=== PATIENT | male | born 1925 | race Caucasian/White ===

== ENCOUNTER → 2016-07-29 | Outpatient (CLI) | payer MEDICARE, OTHER ==
[~2016-07-29] MED LIST: ALLO100T PO; ATOR10 PO; ATOR10TA15 PO; CARV10 PO; CARV20 PO; COLC1CAP PO; COLC1TAB7 PO; DIGO0.25 PO; DIOV40TA PO; FINA5TAB2 PO; FURO1TAB62 PO; FURO1TAB93 PO; FURO40TA PO; GLIM4TAB PO; HUMA100I3 SQ; HUMALOG SQ; INSU1.2I SQ; LANTUSP SQ; LEVEMIR SQ; NOVOLOGP2 SQ; NOVOLOGSS SQ; POTA10TA2 PO; PRAD75CA PO; PROS5TAB2 PO; SAW500CA6 PO; SPIR25TA PO; TAMS0.4C4 PO; TAMS0.4C67 PO; VALS1TAB63 PO; WALKER WHEELS/F1 MIS
[2016-07-29 13:02] LABS: AUTOMATED NEUTROPHIL # 4.2 TH/MM3 (1.8-7.7); BASOPHIL # 0.1 TH/MM3 (0-0.2); EOSINOPHIL # 0.1 TH/MM3 (0-0.4); EOSINOPHIL % 1.1 % (0.0-4.0); HEMATOCRIT 39.4 % (39.0-51.0); LYMPH % 20.8 % (9.0-44.0); LYMPHOCYTE # 1.3 TH/MM3 (1.0-4.8); MEAN CELL VOLUME 99.6 FL (80.0-100.0); MEAN CORPUSCULAR HEMOGLOBIN 33.2 PG (27.0-34.0); MEAN CORPUSCULAR HGB CONC 33.4 % (32.0-36.0); MONO % 12.7 % (0.0-8.0); NEUT % 64.4 % (16.0-70.0); PLATELET COUNT 99 TH/MM3 (150-450); RED BLOOD COUNT 3.96 MIL/MM3 (4.50-5.90); RED CELL DISTRIBUTION WIDTH 16.5 % (11.6-17.2); WHITE BLOOD COUNT 6.5 TH/MM3 (4.0-11.0)
[2016-07-29 13:05] LABS: HEMO FLAGS AUTO DIFF
[2016-07-29 13:25] LABS: ALT (GPT) 36 U/L (12-78); ANION GAP 7 MEQ/L (5-15); AST (GOT) 37 U/L (15-37); BICARBONATE 27.7 MEQ/L (21.0-32.0); BLOOD UREA NITROGEN 29 MG/DL (7-18); CHLORIDE 107 MEQ/L (98-107); GLOMERULAR FILTRATION RATE 46 ML/MIN (>89); POTASSIUM 4.6 MEQ/L (3.5-5.1); SODIUM (NA) 142 MEQ/L (136-145)
[2016-07-29 13:35] LABS: ALKALINE PHOSPHATASE 76 U/L (45-117); HDL CHOLESTEROL 29.8 MG/DL (40.0-60.0); LDL CHOLESTEROL 66 MG/DL (0-99); TOTAL BILIRUBIN ADULT 0.6 MG/DL (0.2-1.0)
[2016-07-29 14:14] LABS: BANDS 1 % (0-6); EOSINOPHILS 4 % (0-4); POLYS (SEG NEUTROPHILS) 60 % (16-70); WBC DIFF SAMPLE 100
[2016-07-29 14:16] LABS: PLATELET ESTIMATE SMEAR LOW (NORMAL); PLATELET MORPHOLOGY ENLARGED (NORMAL); SCAN/DIFF FINAL DIFF MANUAL
== END ==
LOC: PLAB 11:44
PROVIDERS: ATTEND Family Medicine
DX: K63.9 Disease of intestine, unspecified (principal); R51 Headache; R53.82 Chronic fatigue, unspecified; E11.22 Type 2 diabetes mellitus with diabetic chronic kidney disease; N18.3 Chronic kidney disease, stage 3 (moderate); I48.91 Unspecified atrial fibrillation; I50.9 Heart failure, unspecified
CPT/HCPCS: 36415; 80053; 80061; 82378; 84443; 85007; 85027

== ENCOUNTER 2016-08-30 03:58 | Inpatient (IN) | payer MEDICARE, OTHER ==
[2016-08-30] VITALS (15 sets, daily range): BP systolic 101–142; BP diastolic 57–83; PULSE 78–100; RESP 16–22; TEMP 97–98; O2SAT 91–98
[~2016-08-30 03:58] MED LIST changes: -ATOR10TA15 PO; -CARV10 PO; -COLC1CAP PO; -FINA5TAB2 PO; -FURO1TAB62 PO; -FURO40TA PO; -GLIM4TAB PO; -HUMA100I3 SQ; -HUMALOG SQ; -INSU1.2I SQ; -LEVEMIR SQ; -NOVOLOGSS SQ; -POTA10TA2 PO; -TAMS0.4C4 PO; -VALS1TAB63 PO; -WALKER WHEELS/F1 MIS
--- NOTE | 2016-08-30 04:19 | PD ---
HPI Chief Complaint: Altered Mental Status Time Seen by Provider: 04:03 Travel History International Travel<30 days: No Contact w/Intl Traveler<30days: No Traveled to known affect area: No History of Present Illness HPI The patient is an 89 year old male who presents to the [facility] emergency department with a history of being found on the floor next to the bed prior to arrival by his when she came back from going to the bathroom in the night. He was mumbling, confused with a decreased LOC, and diaphoretic. Ambulance services were called and the patient was noted to have a blood sugar of 36. IV access was obtained and the patient was given an amp of D50. The patient's blood sugar came up into the 200s. On arrival with patient's blood sugar is noted to be 76. The patient is normally alert and oriented 3. On my arrival to the room he is alert and oriented 2. The patient's arrived at his bedside and is assisting with this history. The patient does report having some right leg pain. She reports that he may have landed on his right leg. She did not witness him going onto the floor. She is unsure whether he did fall. He has not been having any nausea, vomiting, or diarrhea. She does however report that he did not eat his dinner well last night. She is unsure whether he ate lunch as he was out during that time. He does have a history of diabetes, and he is on Tujeo, Humalog, Glimiperide. He denies having any chest pain, chest pressure, or shortness of breath. He denies having any headache or neck pain. 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 Atrial Fibrillation: Yes Cancer: No Cardiovascular Problems: Yes (CHR, ATR. FIB., LBBB) Diabetes: Yes Endocrine: Yes Gout: Yes Genitourinary: Yes (BPH, RENAL CALCULI) Hepatitis: No Hiatal Hernia: No Hypertension: Yes Immune Disorder: No Musculoskeletal: No Neurologic: Yes (STROKE, NEUROPATHY HANDS/ TOES) Psychiatric: No Reproductive: No Respiratory: No Thyroid Disease: No Past Surgical History Narrative Surgical The patient's past surgical history is significant for tonsil and adenoidectomy , abdominal hernia repair. Abdominal Surgery: Yes (ABD. HERNIA REP.) AICD: No Joint Replacement: No Oral Surgery: Yes (T & A) Pacemaker: No Social History Alcohol Use: No Tobacco Use: No Substance Use: No Allergies-Medications (Allergen,Severity, Reaction): Coded Allergies: Penicillin (Unverified Allergy, Unknown, 08/30/16) Reported Meds & Prescriptions Reported Meds & Active Scripts Active Reported Toudavy Solostar Pen Inj (Insulin Glargine) 300 Unit/Ml Pen 80 Units SQ Tamsulosin (Tamsulosin HCl) 0.4 Mg Cap 0.4 Mg PO HS Mitigare (Colchicine) 0.6 Mg Cap 0.6 Mg PO DAILY Allopurinol 100 Mg Tab 100 Mg PO HS Finasteride 5 Mg Tab 5 Mg PO HS Do not crush. Glimepiride 4 Mg Tab 4 Mg PO HS Take with breakfast or first main meal Humalog Kwikpen Pen Inj (Insulin Lispro (Human) Inj) 300 Unit/3 Ml Pen 50 Units SQ AC DINNER Humalog Inj (Insulin Human Lispro) 1,000 Unit/10 Ml Vial 25 Units SQ AC LUNCH Max dose at bedtime:( )units; sugars < 70,(0)units; sugars 150-199,(5)units; sugars 200-249,(10)units; sugars 250-299,(15)units; sugars 300-349,(20)units; sugars more than 349,(25)units. Humalog Kwikpen Pen Inj (Insulin Lispro (Human) Inj) 300 Unit/3 Ml Pen 35 Units SQ AC BREAKFAST Glimepiride 4 Mg Tab 4 Mg PO DAILY Take with breakfast or first main meal Pradaxa (Dabigatran) 75 Mg Cap 75 Mg PO DAILY Spironolactone 25 Mg Tab 12.5 Mg PO DAILY Furosemide 40 Mg Tab 40 Mg PO DAILY Coreg Cr 24 HR (Carvedilol) 10 Mg Cap 10 Mg PO DAILY Valsartan 40 Mg Tab 20 Mg PO DAILY Atorvastatin (Atorvastatin Calcium) 10 Mg Tab 10 Mg PO DAILY Review of Systems Except as stated in HPI: all other systems reviewed are Neg General / Constitutional: No: Fever Eyes: No: Visual changes HENT: No: Headaches, Congestion Cardiovascular: Positive: Diaphoresis, No: Chest Pain or Discomfort, Dyspnea on exertion Respiratory: No: Cough, Shortness of Breath Gastrointestinal: Positive: Loss of Appetite, No: Nausea, Vomiting, Abdominal Pain Genitourinary: No: Dysuria Musculoskeletal: No: Pain Skin: No Rash Neurologic: Positive: Weakness (generalized weakness), Change in Mentation, No : Focal Abnormalities, Other Psychiatric: No: Depression Endocrine: No: Polydipsia Hematologic/Lymphatic: No: Easy Bruising Physical Exam Narrative General: The patient is a well-developed well-nourished male, slightly pale appearing on arrival, otherwise in no acute distress, O2 saturation on room air is 90%. Head and Neck exam: Head is normocephalic atraumatic. Eyes: Pupils are equal round and reactive to light. Nose: Midline septum with pink mucous membranes Mouth: Dentition unremarkable. Moist mucus membranes. Posterior oropharynx is not erythematous. No tonsillar hypertrophy. Uvula midline. Airway patent. Neck: No palpable lymphadenopathy. No nuchal rigidity. No thyromegaly. The patient has no spinous process tenderness to palpation, no step-off or crepitus , no erythema or ecchymosis. Cardiovascular: Regular rate and rhythm without murmurs, gallops, or rubs. No pulse deficit to the extremities, on simultaneous auscultation and palpation of his radial artery. Lungs: Clear to auscultation bilaterally. No wheezes, rhonchi, or rales. Abdomen: Soft, without tenderness to palpation in all 4 quadrants of the abdomen. No guarding, rebound, or rigidity. Normal bowel sounds are audible. Extremities: No clubbing, cyanosis, or edema. 2+ pulses in all 4 extremities. The patient reports pain in the right groin with flexion of his hip. There is no shortening or external rotation. There is no internal rotation. Back: No spinous process tenderness to palpation. No costovertebral angle tenderness to palpation. Neurologic Exam: Cranial nerves 2-12 were intact on exam. Strength is 5/5 in all 4 extremities. No sensory deficits noted. The patient is oriented to person and place, however not time, or situation. Skin Exam: No rash noted. Intact skin that is warm and dry. Data Data Last Documented VS Vital Signs Date Time Temp Pulse Resp B/P Pulse Ox O2 Delivery O2 Flow Rate FiO2 08/30/16 06:00 83 18 101/57 94 Nasal Cannula 3 08/30/16 04:01 97.4 Orders Electrocardiogram (08/30/16 04:10) Complete Blood Count With Diff (08/30/16 04:10) Comprehensive Metabolic Panel (08/30/16 04:10) Creatine Kinase (Cpk) (08/30/16 04:10) Ckmb (Isoenzyme) Profile (08/30/16 04:10) Troponin I (08/30/16 04:10) B-Type Natriuretic Peptide (08/30/16 04:10) Prothrombin Time / Inr (Pt) (08/30/16 04:10) Act Partial Throm Time (Ptt) (08/30/16 04:10) Lipase (08/30/16 04:10) Urinalysis - C+S If Indicated (08/30/16 04:10) Magnesium (Mg) (08/30/16 04:10) Chest, Single Ap (08/30/16 04:10) Ct Brain W/O Iv Contrast(Rout) (08/30/16 04:10) Iv Access Insert/Monitor (08/30/16 04:10) Ecg Monitoring (08/30/16 04:10) Oximetry (08/30/16 04:10) Hip, Uni(Ap&Lat) W Ap Pelvis (08/30/16 04:10) Dextrose 50% In Clifford (Syr) Inj (D50w (Syr (08/30/16 04:23) Dextrose 50% In Clifford (Vial) Inj (D50w (Vi (08/30/16 04:45) Dext 5%-Nacl 0.45% 1000 Ml Inj (D5w-1/2 (08/30/16 04:45) CKMB (08/30/16 04:05) CKMB% (08/30/16 04:05) Aspirin Chew (Aspirin Chew) (08/30/16 06:00) Nitroglycerin 2% Oint (Nitroglycerin 2% (08/30/16 06:00) Admit Order (Ed Use Only) (08/30/16 06:51) Labs Laboratory Tests Test 08/30/16 08/30/16 04:05 06:15 White Blood Count 12.2 TH/MM3 Red Blood Count 4.15 MIL/MM3 Hemoglobin 14.1 GM/DL Hematocrit 41.4 % Mean Corpuscular Volume 99.9 FL Mean Corpuscular Hemoglobin 34.1 PG Mean Corpuscular Hemoglobin 34.1 % Concent Red Cell Distribution Width 16.0 % Platelet Count 115 TH/MM3 Mean Platelet Volume 11.2 FL Neutrophils (%) (Auto) 78.7 % Lymphocytes (%) (Auto) 10.3 % Monocytes (%) (Auto) 9.7 % Eosinophils (%) (Auto) 0.4 % Basophils (%) (Auto) 0.9 % Neutrophils # (Auto) 9.6 TH/MM3 Lymphocytes # (Auto) 1.3 TH/MM3 Monocytes # (Auto) 1.2 TH/MM3 Eosinophils # (Auto) 0.1 TH/MM3 Basophils # (Auto) 0.1 TH/MM3 CBC Comment AUTO DIFF Differential Total Cells 100 Counted Neutrophils % (Manual) 68 % Band Neutrophils % 15 % Lymphocytes % 13 % Monocytes % 4 % Neutrophils # (Manual) 10.1 TH/MM3 Differential Comment FINAL DIFF MANUAL Dohle Bodies PRESENT Platelet Estimate LOW Platelet Morphology Comment NORMAL Prothrombin Time 15.0 SEC Prothromb Time International 1.3 RATIO Ratio Activated Partial 37.4 SEC Thromboplast Time Sodium Level 145 MEQ/L Potassium Level 3.8 MEQ/L Chloride Level 112 MEQ/L Carbon Dioxide Level 24.6 MEQ/L Anion Gap 8 MEQ/L Blood Urea Nitrogen 34 MG/DL Creatinine 1.58 MG/DL Estimat Glomerular Filtration 42 ML/MIN Rate Random Glucose 73 MG/DL Calcium Level 8.4 MG/DL Magnesium Level 2.3 MG/DL Total Bilirubin 0.7 MG/DL Aspartate Amino Transf 46 U/L (AST/SGOT) Alanine Aminotransferase 42 U/L (ALT/SGPT) Alkaline Phosphatase 74 U/L Total Creatine Kinase 391 U/L Creatine Kinase MB 6.6 NG/ML Creatine Kinase MB % 1.7 % Troponin I 0.16 NG/ML B-Type Natriuretic Peptide 227 PG/ML Total Protein 6.9 GM/DL Albumin 3.5 GM/DL Lipase 68 U/L Urine Color YELLOW Urine Turbidity CLEAR Urine pH 5.5 Urine Specific [place] 1.014 Urine Protein NEG mg/dL Urine Glucose (UA) NEG mg/dL Urine Ketones NEG mg/dL Urine Occult Blood NEG Urine Nitrite NEG Urine Bilirubin NEG Urine Urobilinogen LESS THAN 2.0 MG/DL Urine Leukocyte Esterase MOD Urine RBC LESS THAN 1 /hpf Urine WBC 5 /hpf Urine WBC Clumps RARE Urine Bacteria MANY /hpf Urine Hyaline Casts 2 /lpf Microscopic Urinalysis Comment CULTURE INDICATED MDM Medical Decision Making Medical Screen Exam Complete: Yes Emergency Medical Condition: Yes Medical Record Reviewed: Yes Interpretation(s) Laboratory Tests Test 08/30/16 08/30/16 04:05 06:15 White Blood Count 12.2 TH/MM3 Red Blood Count 4.15 MIL/MM3 Hemoglobin 14.1 GM/DL Hematocrit 41.4 % Mean Corpuscular Volume 99.9 FL Mean Corpuscular Hemoglobin 34.1 PG Mean Corpuscular Hemoglobin 34.1 % Concent Red Cell Distribution Width 16.0 % Platelet Count 115 TH/MM3 Mean Platelet Volume 11.2 FL Neutrophils (%) (Auto) 78.7 % Lymphocytes (%) (Auto) 10.3 % Monocytes (%) (Auto) 9.7 % Eosinophils (%) (Auto) 0.4 % Basophils (%) (Auto) 0.9 % Neutrophils # (Auto) 9.6 TH/MM3 Lymphocytes # (Auto) 1.3 TH/MM3 Monocytes # (Auto) 1.2 TH/MM3 Eosinophils # (Auto) 0.1 TH/MM3 Basophils # (Auto) 0.1 TH/MM3 CBC Comment AUTO DIFF Differential Total Cells 100 Counted Neutrophils % (Manual) 68 % Band Neutrophils % 15 % Lymphocytes % 13 % Monocytes % 4 % Neutrophils # (Manual) 10.1 TH/MM3 Differential Comment FINAL DIFF MANUAL Dohle Bodies PRESENT Platelet Estimate LOW Platelet Morphology Comment NORMAL Prothrombin Time 15.0 SEC Prothromb Time International 1.3 RATIO Ratio Activated Partial 37.4 SEC Thromboplast Time Sodium Level 145 MEQ/L Potassium Level 3.8 MEQ/L Chloride Level 112 MEQ/L Carbon Dioxide Level 24.6 MEQ/L Anion Gap 8 MEQ/L Blood Urea Nitrogen 34 MG/DL Creatinine 1.58 MG/DL Estimat Glomerular Filtration 42 ML/MIN Rate Random Glucose 73 MG/DL Calcium Level 8.4 MG/DL Magnesium Level 2.3 MG/DL Total Bilirubin 0.7 MG/DL Aspartate Amino Transf 46 U/L (AST/SGOT) Alanine Aminotransferase 42 U/L (ALT/SGPT) Alkaline Phosphatase 74 U/L Total Creatine Kinase 391 U/L Creatine Kinase MB 6.6 NG/ML Creatine Kinase MB % 1.7 % Troponin I 0.16 NG/ML B-Type Natriuretic Peptide 227 PG/ML Total Protein 6.9 GM/DL Albumin 3.5 GM/DL Lipase 68 U/L Urine Color YELLOW Urine Turbidity CLEAR Urine pH 5.5 Urine Specific [place] 1.014 Urine Protein NEG mg/dL Urine Glucose (UA) NEG mg/dL Urine Ketones NEG mg/dL Urine Occult Blood NEG Urine Nitrite NEG Urine Bilirubin NEG Urine Urobilinogen LESS THAN 2.0 MG/DL Urine Leukocyte Esterase MOD Urine RBC LESS THAN 1 /hpf Urine WBC 5 /hpf Urine WBC Clumps RARE Urine Bacteria MANY /hpf Urine Hyaline Casts 2 /lpf Microscopic Urinalysis Comment CULTURE INDICATED Last Impressions Hip and Pelvis X-Ray 08/30/16409 Signed Impressions: Service Date/Time: Tuesday, August 30, 2016 04:33 - CONCLUSION: No acute disease. Anirudh Stevenson MD Head CT 08/30/16409 Signed Impressions: Service Date/Time: Tuesday, August 30, 2016 04:40 - CONCLUSION: No acute disease. There is age-related atrophy and right frontal lobe encephalomalacia. Anirudh Stevenson MD Chest X-Ray 08/30/16409 Signed Impressions: Service Date/Time: Tuesday, August 30, 2016 04:37 - CONCLUSION: No acute disease. Anirudh Stevenson MD Differential Diagnosis Encephalopathy related to hypoglycemic event, versus intracranial hemorrhage, versus right hip fracture, versus pelvic fracture Narrative Course During the course of the patients emergency department visit, the patients history, examination, and differential diagnosis were reviewed with the patient. The patient had IV access obtained and blood work sent for analysis. The patient's blood sugar was rechecked on arrival was 76. The patient was given orange juice. The patient's blood sugar was rechecked again and found to be 74. The patient will be given a half amp of D50. The patient will be started on D5 normal saline at 70 mL per hour. The patients laboratory studies were reviewed and remarkable for white count 12.2, hemoglobin 14.1, platelets 1:15 with neutrophils of 68, bands at 15, CMP is remarkable for chloride 112, BUN 34, creatinine 1.58, glucose 73, AST 46, CPK 391 with an MB percent 1.7, troponin I 0.16, BNP 227, lipase 68, PT 15, PTT 37.4, INR 1.3, urinalysis shows moderate leukocyte esterase 5 wbc's rare clumps many bacteria, culture indicated. This appears to be the source of the patient' s elevated white count and bandemia. The patient will be started on IV antibiotic Radiology studies were reviewed and remarkable for a chest x-ray that shows no acute abnormality. CT scan of the brain shows no acute disease, age-related atrophy and right frontal lobe encephalomalacia, chest x-ray shows no acute abnormality. The patients results were discussed with the patient, including the plan of care. I explained that further testing and/ or monitoring is indicated based on the patients history, examination, and/ or laboratory findings. Therefore, I recommended admission for additional evaluation. The patient expressed understanding and was agreeable with this plan. The patient was admitted to the hospital in guarded condition and sent to a bed under the [facility]. Physician Communication Physician Communication The patient's case was discussed with Dr. Francois who did agree to admit the patient for further evaluation and treatment at this time Diagnosis Primary Impression: Hypoglycemia Additional Impressions: Altered mental status Qualified Code: R41.0 - Disorientation Urinary tract infection Qualified Code: N39.0 - Urinary tract infection without hematuria, site unspecified Admitting Information Admitting Physician Requests: Admit Lauryn Collins MD Aug 30, 2016 04:19
[2016-08-30] MEDS ORDERED: DEXTROSE 50% IN WATER 50 ML SYRINGE ONE (04:23)
[2016-08-30 04:44] LABS: AUTOMATED NEUTROPHIL # 9.6 TH/MM3 (1.8-7.7); BASOPHIL # 0.1 TH/MM3 (0-0.2); BASOPHIL % 0.9 % (0.0-2.0); EOSINOPHIL # 0.1 TH/MM3 (0-0.4); EOSINOPHIL % 0.4 % (0.0-4.0); HEMATOCRIT 41.4 % (39.0-51.0); LYMPH % 10.3 % (9.0-44.0); LYMPHOCYTE # 1.3 TH/MM3 (1.0-4.8); MEAN CELL VOLUME 99.9 FL (80.0-100.0); MEAN CORPUSCULAR HEMOGLOBIN 34.1 PG (27.0-34.0); MEAN CORPUSCULAR HGB CONC 34.1 % (32.0-36.0); MONO % 9.7 % (0.0-8.0); NEUT % 78.7 % (16.0-70.0); PLATELET COUNT 115 TH/MM3 (150-450); RED BLOOD COUNT 4.15 MIL/MM3 (4.50-5.90); WHITE BLOOD COUNT 12.2 TH/MM3 (4.0-11.0)
[2016-08-30] MEDS ORDERED: DEXTROSE 50% IN WATER 50 ML VIAL(D50) IV PUSH ONE (04:45)
[2016-08-30 04:48] LABS: HEMO FLAGS AUTO DIFF
[2016-08-30] MEDS ORDERED: SPIR25TA PO (04:48)
[2016-08-30] MEDS ORDERED: FURO40TA PO (04:48)
[2016-08-30] MEDS ORDERED: COLC1CAP PO (04:48)
[2016-08-30] MEDS ORDERED: HUMA100I3 SQ ×2 (04:48)
[2016-08-30] MEDS ORDERED: HUMALOG SQ (04:48)
[2016-08-30] MEDS ORDERED: VALS1TAB63 PO (04:48)
[2016-08-30] MEDS ORDERED: FINA5TAB2 PO (04:48)
[2016-08-30] MEDS ORDERED: PRAD75CA PO (04:48)
[2016-08-30] MEDS ORDERED: CARV10 PO (04:48)
[2016-08-30] MEDS ORDERED: INSU1.2I SQ (04:48)
[2016-08-30] MEDS ORDERED: ALLO100T PO (04:48)
[2016-08-30] MEDS ORDERED: GLIM4TAB PO ×2 (04:48)
[2016-08-30] MEDS ORDERED: ATOR10TA15 PO (04:48)
[2016-08-30] MEDS ORDERED: TAMS0.4C4 PO (04:48)
[2016-08-30 04:50] LABS: APTT (PATIENT) 37.4 SEC (24.3-30.1); INTERNATIONAL NORMALIZED RATIO 1.3 RATIO
[2016-08-30 04:53] LABS: ALT (GPT) 42 U/L (12-78); ANION GAP 8 MEQ/L (5-15); AST (GOT) 46 U/L (15-37); BICARBONATE 24.6 MEQ/L (21.0-32.0); BLOOD UREA NITROGEN 34 MG/DL (7-18); CHLORIDE 112 MEQ/L (98-107); GLOMERULAR FILTRATION RATE 42 ML/MIN (>89); MAGNESIUM 2.3 MG/DL (1.5-2.5); POTASSIUM 3.8 MEQ/L (3.5-5.1); SODIUM (NA) 145 MEQ/L (136-145)
[2016-08-30 04:57] LABS: ALKALINE PHOSPHATASE 74 U/L (45-117); CREATINE KINASE 391 U/L (39-308); TOTAL BILIRUBIN ADULT 0.7 MG/DL (0.2-1.0)
[2016-08-30] MEDS: DEXT 5%-NACL 0.45% 1000 ML INJ 1,000 ML IV SCH (05:05)
--- NOTE | 2016-08-30 05:08 | RADRPT ---
EXAM DATE/TIME: 08/30/2016 04:37 [facility] COMPARISON: CHEST SINGLE AP, June 15, 2014, 10:15. INDICATIONS : Trauma, fall. MEDICAL HISTORY : None. SURGICAL HISTORY : None. ENCOUNTER: Initial ACUITY: 1 day PAIN SCORE: 0/10 LOCATION: Bilateral chest FINDINGS: The heart size is enlarged. The aorta is widened. The aorta was one on the prior exam. The lungs are clear. The bony structures are normal. CONCLUSION: No acute disease. Anirudh Stevenson MD on August 30, 2016 at 5:05 Board Certified Radiologist. This report was verified electronically.
--- NOTE | 2016-08-30 05:09 | RADRPT ---
EXAM DATE/TIME: 08/30/2016 04:33 [facility] COMPARISON: No previous studies available for comparison. INDICATIONS : Trauma, fall. MEDICAL HISTORY : None. SURGICAL HISTORY : None. ENCOUNTER: Initial ACUITY: 1 day PAIN SCORE: 5/10 LOCATION: Right hip. FINDINGS: Examination of the right hip was performed with AP Pelvis. The primary and secondary trabecular regina pao of the femoral neck is intact. The hip joint is of normal width without significant sclerosis or bony hypertrophy. The acetabulum is grossly intact. Hernia mesh is seen in the right inguinal regio n. Vascular calcifications are seen. CONCLUSION: No acute disease. Anirudh Stevenson MD on August 30, 2016 at 5:07 Board Certified Radiologist. This report was verified electronically.
[2016-08-30 05:10] LABS: CKMB 6.6 NG/ML (0.5-3.6)
--- NOTE | 2016-08-30 05:10 | RADRPT ---
EXAM DATE/TIME: 08/30/2016 04:40 [facility] COMPARISON: HIP RIGHT (AP&LAT 2/3VWS) W AP PELVIS, August 30, 2016, 4:33. CT BRAIN W/O CONTRAST, June 15, 2014, 10:30. INDICATIONS : Fall. Altered mental status. RADIATION DOSE: 48.37 CTDIvol (mGy) MEDICAL HISTORY : Cardiovascular disease. Hypertension. Diabetes mellitus type 2. SURGICAL HISTORY : None. ENCOUNTER: Initial ACUITY: 1 day PAIN SCALE: 0/10 LOCATION: cranial TECHNIQUE: Multiple contiguous axial images were obtained of the head. Using automated exposure control and adj ustment of the mA and/or kV according to patient size, radiation dose was kept as low as reasonably a chievable to obtain optimal diagnostic quality images. FINDINGS: CEREBRUM: There is encephalomalacia in the right frontal lobe. The ventricles and cortical sulci are widened. No evidence of midline shift, mass lesion, hemorrhage or acute infarction. No extra-axial fluid zhen ections are seen. POSTERIOR FOSSA: The cerebellum and brainstem are intact. The 4th ventricle is midline. The cerebellopontine angle i s unremarkable. EXTRACRANIAL: The visualized portion of the orbits is intact. There is left maxillary sinus disease. SKULL: The calvaria is intact. No evidence of skull fracture. CONCLUSION: No acute disease. There is age-related atrophy and right frontal lobe encephalomalacia. Anirudh Stevenson MD on August 30, 2016 at 5:07 Board Certified Radiologist. This report was verified electronically.
[2016-08-30 05:28] LABS: BANDS 15 % (0-6); NEUTROPHIL # MANUAL DIFF 10.1 TH/MM3 (1.8-7.7); POLYS (SEG NEUTROPHILS) 68 % (16-70); WBC DIFF SAMPLE 100
[2016-08-30 05:29] LABS: DOHLE BODIES PRESENT (NONE SEEN); PLATELET ESTIMATE SMEAR LOW (NORMAL); PLATELET MORPHOLOGY NORMAL (NORMAL); SCAN/DIFF FINAL DIFF MANUAL
[2016-08-30] MEDS ORDERED: NITROGLYCERIN 2% OINT 1 GM PACKET TOPICAL ONE (06:00)
[2016-08-30] MEDS ORDERED: ASPIRIN 81 MG CHEW TAB CHEW ONE (06:00)
[2016-08-30 06:54] LABS: BACTERIA, URINE MANY /hpf; BLOOD, URINE NEG (NEG); GLUCOSE,URINE NEG (NEG); HYALINE CAST, URINE 2 /lpf (RARE); KETONE, URINE NEG (NEG); NITRITE,URINE NEG (NEG); PH, URINE 5.5 (5.0-8.5); URINE COLOR YELLOW (YELLW/STRAW)
[2016-08-30 06:58] LABS: COMMENT (UR) CULTURE INDICATED; CULTURE IF INDICATED CULTURE INDICATED
[2016-08-30] MEDS ORDERED: SODIUM CHLORIDE 0.9% FLUSH 5 ML FLUSH FLUSH PRN (07:00)
[2016-08-30] MEDS ORDERED: ONDANSETRON HCL 4 MG/2 ML VIAL IVP PRN (07:00)
[2016-08-30] MEDS ORDERED: NALOXONE HCL 0.4 MG/ML AMP IV PRN (07:00)
[2016-08-30] MEDS ORDERED: CEFEPIME INJ 2,000 MG in SODIUM CHLORIDE 0.9% INJ 100 ML IV STA (07:44)
[2016-08-30] MEDS ORDERED: PILL SPLITTER OTHER PRN (08:00)
[2016-08-30] MEDS ORDERED: VALSARTAN 40 MG TAB PO SCH (09:00)
[2016-08-30] MEDS ORDERED: SPIRONOLACTONE 25 MG TAB PO SCH (09:00)
[2016-08-30] MEDS ORDERED: FUROSEMIDE 40 MG TAB PO SCH (09:00)
[2016-08-30] MEDS: SODIUM CHLORIDE 0.9% FLUSH 5 ML FLUSH FLUSH SCH ×2 (09:01→20:24)
[2016-08-30] MEDS: CARVEDILOL 3.125 MG TAB PO SCH ×2 (09:02→20:33)
[2016-08-30] MEDS: DABIGATRAN ETEXILATE 75 MG CAP PO SCH (09:04)
[2016-08-30] MEDS: ATORVASTATIN 10 MG TAB PO SCH (09:04)
[2016-08-30 09:14] LABS: CKMB 16.7 NG/ML (0.5-3.6)
--- NOTE | 2016-08-30 10:37 | RADRPT ---
EXAM DATE/TIME: 08/30/2016 09:36 [facility] COMPARISON: No previous studies available for comparison. INDICATIONS : Syncope. MEDICAL HISTORY : Stroke. Congestive heart failure. Hypertension. Cataracts. Neuropathy. A.FIB. Left bundle branch bloc kage. Gout. Diabetes. BPH. SURGICAL HISTORY : Tonsillectomy. Adenoidectomy. Hernia repair. ENCOUNTER: Initial ACUITY: 1 day PAIN SCORE: 0/10 LOCATION: Right neck PEAK SYSTOLIC VELOCITIES (cm/sec): ICA/CCA RATIO: Right: 0.4 Left: 0.8 ICA: Right: 53 Left: 73 CCA: Right: 125 Left: 97 ECA: Right: 61 Left: 124 VERTEBRAL: Right: 25 antegrade Left: 71 antegrade Elevated flow velocities and ICA/CCA ratios have been found to correlate with increased degrees of vessel stenosis, calculated as percentage of diameter relative to a normal segment of distal ICA/CCA FINDINGS: RIGHT CAROTID: No significant stenosis is visualized. Mild plaque. The waveforms are within normal limits. LEFT CAROTID: No significant stenosis is visualized. Mild plaque. The waveforms are within normal limits. VERTEBRAL ARTERIES: Antegrade flow is seen in both vertebral arteries. MISCELLANEOUS: None. CONCLUSION: 1. Mild plaque. 2. No hemodynamically significant stenosis in either carotid artery. Raheel Juares MD on August 30, 2016 at 10:32 Board Certified Radiologist. This report was verified electronically.
--- NOTE | 2016-08-30 12:11 | HHI.HP ---
HPI Service [facility] Primary Care Physician Eva Gay MD Admission Diagnosis Hypoglycemia, AMS, intermediate troponin Diagnoses: Chief Complaint: Syncope Travel History International Travel<30 Days: No Contact w/Intl Traveler <30 Da: No Traveled to Known Affected Are: No History of Present Illness 89 years old male with history of CHF, A. 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 In general patient is very poor historian he does not remember anything related to the episodes denied remembering chest pain short of breath lightheaded or dizziness, blurry vision, sweatiness or diaphoresis. Currently patient denies any chest pain short of breath, abdominal pain diarrhea or constipation, dysuria urgency or frequency, headache or lightheaded or dizziness Review of Systems ROS Limitations: Poor Historian All 10 systems reviewed and was positive for what is mentioned in history of present illness otherwise negative in sitting palpation is poor historian Past Family Social History Past Medical History history of CHF, A. 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, diabetes mellitus, LBBB, BPH, hypertension, diabetic nephropathy, Past Surgical History Hernia repair Allergies: Coded Allergies: Penicillin (Unverified Allergy, Unknown, 08/30/16) Family History Diabetes mellitus in his mother Social History Denied tobacco alcohol or illicit drug abuse Physical Exam Vital Signs Vital Signs Date Time Temp Pulse Resp B/P Pulse Ox O2 Delivery O2 Flow Rate FiO2 08/30/16 11:00 100 08/30/16 11:00 97.6 100 22 131/83 98 08/30/16 09:58 92 18 142/74 96 Nasal Cannula 08/30/16 09:00 93 18 125/65 95 Nasal Cannula 3 08/30/16 07:50 86 18 110/59 96 Nasal Cannula 3 08/30/16 06:00 83 18 101/57 94 Nasal Cannula 3 08/30/16 04:05 92 Nasal Cannula 2 08/30/16 04:01 97.4 88 16 130/68 91 Physical Exam GENERAL: This is a well-nourished, well-developed patient, in no apparent distress. SKIN: No rashes, warm and dry HEAD: Atraumatic. Normocephalic. EYES: Pupils equal round and reactive. Extraocular motions intact. No scleral icterus. ENT: Nose without bleeding, or drainage, Airway patent. NECK: Trachea midline. Supple CARDIOVASCULAR: Regular rate and rhythm without murmurs, gallops, or rubs. RESPIRATORY: Fair air entry bilaterally. No wheezes, rales, or rhonchi. GASTROINTESTINAL: Abdomen soft, non-tender, nondistended. Positive bowel sounds MUSCULOSKELETAL: Extremities without clubbing, cyanosis, or edema. Pedal pulses appreciated NEUROLOGICAL: Awake and alert. Moves all extremity. Normal speech.no focal neurological deficit Laboratory Laboratory Tests Test 08/30/16 08/30/16 08/30/16 04:05 06:15 08:00 White Blood Count 12.2 Red Blood Count 4.15 Hemoglobin 14.1 Hematocrit 41.4 Mean Corpuscular Volume 99.9 Mean Corpuscular Hemoglobin 34.1 Mean Corpuscular Hemoglobin 34.1 Concent Red Cell Distribution Width 16.0 Platelet Count 115 Mean Platelet Volume 11.2 Neutrophils (%) (Auto) 78.7 Lymphocytes (%) (Auto) 10.3 Monocytes (%) (Auto) 9.7 Eosinophils (%) (Auto) 0.4 Basophils (%) (Auto) 0.9 Neutrophils # (Auto) 9.6 Lymphocytes # (Auto) 1.3 Monocytes # (Auto) 1.2 Eosinophils # (Auto) 0.1 Basophils # (Auto) 0.1 CBC Comment AUTO DIFF Differential Total Cells 100 Counted Neutrophils % (Manual) 68 Band Neutrophils % 15 Lymphocytes % 13 Monocytes % 4 Neutrophils # (Manual) 10.1 Differential Comment FINAL DIFF MANUAL Dohle Bodies PRESENT Platelet Estimate LOW Platelet Morphology Comment NORMAL Prothrombin Time 15.0 Prothromb Time International 1.3 Ratio Activated Partial 37.4 Thromboplast Time Sodium Level 145 Potassium Level 3.8 Chloride Level 112 Carbon Dioxide Level 24.6 Anion Gap 8 Blood Urea Nitrogen 34 Creatinine 1.58 Estimat Glomerular Filtration 42 Rate Random Glucose 73 Calcium Level 8.4 Magnesium Level 2.3 Total Bilirubin 0.7 Aspartate Amino Transf 46 (AST/SGOT) Alanine Aminotransferase 42 (ALT/SGPT) Alkaline Phosphatase 74 Total Creatine Kinase 391 1733 Creatine Kinase MB 6.6 16.7 Creatine Kinase MB % 1.7 1.0 Troponin I 0.16 0.54 B-Type Natriuretic Peptide 227 Total Protein 6.9 Albumin 3.5 Lipase 68 Urine Color YELLOW Urine Turbidity CLEAR Urine pH 5.5 Urine Specific [place] 1.014 Urine Protein NEG Urine Glucose (UA) NEG Urine Ketones NEG Urine Occult Blood NEG Urine Nitrite NEG Urine Bilirubin NEG Urine Urobilinogen LESS THAN 2.0 Urine Leukocyte Esterase MOD Urine RBC LESS THAN 1 Urine WBC 5 Urine WBC Clumps RARE Urine Bacteria MANY Urine Hyaline Casts 2 Microscopic Urinalysis Comment CULTURE INDICATED Date/Time Procedure Status Source Growth 08/30/16 06:15 Urine Culture Received Urine Clean Catch Pending Result Diagram: 08/30/1640408/30/16404 Imaging Last Impressions Hip and Pelvis X-Ray 08/30/16409 Signed Impressions: Service Date/Time: Tuesday, August 30, 2016 04:33 - CONCLUSION: No acute disease. Anirudh Stevenson MD Head CT 08/30/16409 Signed Impressions: Service Date/Time: Tuesday, August 30, 2016 04:40 - CONCLUSION: No acute disease. There is age-related atrophy and right frontal lobe encephalomalacia. Anirudh Stevenson MD Chest X-Ray 08/30/16409 Signed Impressions: Service Date/Time: Tuesday, August 30, 2016 04:37 - CONCLUSION: No acute disease. Anirudh Stevenson MD Carotid Artery Ultrasound 08/30/16 0000 Signed Impressions: Service Date/Time: Tuesday, August 30, 2016 09:36 - CONCLUSION: 1. Mild plaque. 2. No hemodynamically significant stenosis in either carotid artery. 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 fib patient on Pradaxa heart rate control History of hypertension History of hyperlipidemia Diabetes mellitus DVT prophylaxis on Pradaxa Plan: Admit to telemetry. Hydration with D5 normal saline iv fluid, frequent Accu-Chek, ISS, diabetic education, I personally indicated the patient about the need of good oral feeds when taking the insulin Continue cycling cardiac enzyme, EKG personally reviewed by me showing atrial flutter/tachycardia with RVR heart rate is 100, LBBB which is old, left axis deviation CT of the head, chest x-ray, pelvic x-ray all personally reviewed by me unremarkable Syncope protocol to rule out other underlying cause>> 2-D echo, orthostatic blood pressure, carotid ultrasound, EEG All Lasix and Aldactone and losartan due to WAGNER and rhabdomyolysis Monitor BMP and CBC PT OT consult Consult case management for placement Continue home medication for the rest of medical problems including Pradaxa Discussed Condition With Patient nurse and his Physician Certification 2 Midnight Certification Type: Admission for Inpatient Services Order for Inpatient Services The services are ordered in accordance with Medicare regulations or non- Medicare payer requirements, as applicable. In the case of services not specified as inpatient-only, they are appropriately provided as inpatient services in accordance with the 2-midnight benchmark. Estimated LOS (days): 2 days is the estimated time the patient will need to remain in the hospital, assuming treatment plan goals are met and no additional complications. Post-Hospital Plan: SNF Gracie Garcia MD Aug 30, 2016 12:11
[2016-08-30] MEDS ORDERED: hydrALAZINE HCL 20 MG/ML VIAL IV PUSH PRN (12:30)
[2016-08-30 14:14] LABS: CKMB 22.2 NG/ML (0.5-3.6)
--- NOTE | 2016-08-30 16:51 | EC ---
Study Study Date:08/30/2016 STUDY CONCLUSIONS SUMMARY - Left ventricle: The cavity size was normal. Wall thickness was normal. Systolic function was mildly reduced. The estimated ejection fraction was in the range of 45% to 50%. Diffuse hypokinesis with regional variations. - Ventricular septum: Septal motion showed dyssynergy. These changes are consistent with intraventricular conduction delay. - Aortic valve: Mild regurgitation. - Mitral valve: Calcified annulus. Mild regurgitation. - Left atrium: The atrium was mildly to moderately dilated. - Right atrium: The atrium was mildly dilated. - Tricuspid valve: Mild regurgitation. - Pulmonic valve: Mild regurgitation. - Pulmonary arteries: Systolic pressure was moderately to severely increased. PA peak pressure: 64mm Hg (S). If LV function is below 40, please consider prescribing an ACEI or ARB or document rationale for non-use. PROCEDURE DATA STUDY STATUS: Elective. Procedure: Transthoracic echocardiography. Image quality was good. Scanning was performed from the parasternal, apical, and subcostal acoustic windows. Study completion: The patient tolerated the procedure well. Transthoracic echocardiography. M-mode, complete 2D, complete spectral Doppler, and color Doppler. Patient status: Inpatient. CARDIAC ANATOMY LEFT VENTRICLE: The cavity size was normal. Wall thickness was normal. Systolic function was mildly reduced. The estimated ejection fraction was in the range of 45% to 50%. Diffuse hypokinesis with regional variations. AORTIC VALVE: Trileaflet; normal thickness leaflets. Doppler: Transvalvular velocity was within the normal range. There was no stenosis. Mild regurgitation. AORTA: Aortic root: The aortic root was mildly dilated. MITRAL VALVE: Calcified annulus. Doppler: Transvalvular velocity was within the normal range. There was no evidence for stenosis. Mild regurgitation. LEFT ATRIUM: The atrium was mildly to moderately dilated. RIGHT VENTRICLE: The cavity size was at the upper limits of normal. Wall thickness was normal. VENTRICULAR SEPTUM: Septal motion showed dyssynergy. These changes are consistent with intraventricular conduction delay. PULMONIC VALVE: Doppler: Transvalvular velocity was within the normal range. There was no evidence for stenosis. Mild regurgitation. TRICUSPID VALVE: Structurally normal valve. Doppler: Transvalvular velocity was within the normal range. Mild regurgitation. PULMONARY ARTERY: Systolic pressure was moderately to severely increased. RIGHT ATRIUM: The atrium was mildly dilated. PERICARDIUM: There was no pericardial effusion. SYSTEMIC VEINS: Inferior vena cava: The vessel was normal in size. BASIC MEASUREMENTS ADULT Normal Left ventricle LV internal dimension, ED, chordal level, 51 mm 43-52 PLAX LV internal dimension, ES, chordal level, *42.6 mm 23-38 PLAX Fractional shortening, chordal level, PLAX *16 % >29 LV posterior wall thickness, ED 10.1 mm IVS/LVPW ratio, ED *1.37 <1.3 Ventricular septum Septal thickness, ED 13.8 mm Aortic valve Leaflet separation 20 mm 15-26 Right ventricle RV internal dimension, ED, PLAX *40.6 mm 19-38 BASIC MEASUREMENTS ADULT Normal Aortic valve Leaflet separation 20 mm 15-26 Aorta Root diameter, ED *38 mm 20-37 Left atrium Anterior-posterior dimension, ES *50 mm 19-40 LA/aortic root ratio 1.32 DOPPLER MEASUREMENTS ADULT Normal Main pulmonary artery Pressure, S *64 mm Hg =30 Tricuspid valve Regurgitant peak velocity 366 cm/s Peak RV-RA gradient, S 54 mm Hg Maximal regurgitant velocity 366 cm/s Systemic veins Estimated CVP 10 mm Hg Right ventricle RV pressure, S *64 mm Hg <30 LEGEND: Mean values are shown as u=mean value. Asterisk (*) ellsworth values outside specified normal range. Prepared and signed by Dandre Kaiser [id number]
[2016-08-30] MEDS ORDERED: DEXTROSE 50% IN WATER 50 ML VIAL(D50) IV PUSH PRN (18:30)
[2016-08-30] MEDS ORDERED: GLUCAGON 1 MG/ML VIAL OTHER PRN (18:30)
--- NOTE | 2016-08-30 19:40 | MG ---
cc: NATALIIA MATHUR M.D. Lab No: Date: 08/30/2016 Age: Sex: M Race: Cc: DATE OF 1925, 89 years old. EEG NUMBER [id number] ROOM 242 With photic stimulation. Awake, drowsy, asleep study. CT age related atrophy frontal lobe, right-sided encephalomalacia. Found on the floor next to the bed by his , mumbling, confused, decreased level of consciousness. Diaphoretic. Accu-Chek of 36. The patient has a history of atrial fibrillation, benign prostatic hypertrophy, diabetes, stroke, neuropathy. MEDICATIONS On: 1. Lipitor. 2. Pradaxa. 3. Flomax. 4. Proscar. 5. Allopurinol. 6. Lasix. 7. Coreg. 8. And others. DESCRIPTION OF RECORD The patient has some background slowing of 5 Hz at times. Some eye movement artifact seen initially. EKG looks to be sinus but difficult from this one lead to tell 100%. Overall symmetrical background, slow, theta frequency. Some eye movement artifact. Hyperventilation was not performed. Photic stimulation was performed towards the end, no significant driving response. IMPRESSION Abnormal EEG due to mild-moderate slowing may be due to metabolic encephalopathy. No evidence of any epileptiform features. MD ARMANDO Knight/CORNELIUS /6:58 PM /7:33 PM
[2016-08-30] MEDS: ALLOPURINOL 100 MG TAB PO SCH (20:24)
[2016-08-30] MEDS: FINASTERIDE 5 MG TAB PO SCH (20:24)
[2016-08-30] MEDS: TAMSULOSIN HCL 0.4 MG CAP PO SCH (20:25)
[2016-08-30] MEDS: LOW DOSE INSULIN NOVOLOG SUPPLEMENTAL SCALE SQ SCH (22:15)
[2016-08-30 22:41] LABS: HEMOGLOBIN A1a 1.1 %; HEMOGLOBIN A1b 0.8 %; HEMOGLOBIN Ao 82.7 %; HEMOGLOBIN F 1.2 %; HEMOGLOBIN LA1C 1.5 %; HEMOGLOBIN P3 5.8 %
[2016-08-31] VITALS (19 sets, daily range): BP systolic 103–126; BP diastolic 66–78; PULSE 74–102; RESP 16–20; TEMP 97.5–98.4; O2SAT 94–98
[2016-08-31] MEDS: LOW DOSE INSULIN NOVOLOG SUPPLEMENTAL SCALE SQ SCH ×4 (06:20→20:38)
--- NOTE | 2016-08-31 06:54 | EKG ---
Date Performed: 08/30/2016 Time Performed: 04:18:52 PTAGE: 89 years EKG: ATRIAL FLUTTER/TACHYCARDIA WITH RAPID VENTRICULAR RESPONSE MARKED LEFT AXIS DEVIATION LEFT BUNDLE BRANCH BLOCK Prolongation of QT interval ABNORMAL ECG PREVIOUS TRACING : 06/15/2014 10.17 DOCTOR: Garrett Wagoner Interpretating Date/Time 08/31/2016 06:53:51
[2016-08-31] MEDS: CARVEDILOL 3.125 MG TAB PO SCH ×2 (08:52→20:37)
[2016-08-31] MEDS: ATORVASTATIN 10 MG TAB PO SCH (08:53)
[2016-08-31] MEDS: DABIGATRAN ETEXILATE 75 MG CAP PO SCH (08:53)
[2016-08-31] MEDS: SODIUM CHLORIDE 0.9% FLUSH 5 ML FLUSH FLUSH SCH ×2 (08:54→20:37)
[2016-08-31] MEDS: DEXT 5%-NACL 0.45% 1000 ML INJ 1,000 ML IV SCH (09:21)
[2016-08-31] MEDS ORDERED: PNEUMOCOCCAL POLYVALENT INJ 25 MCG/0.5 ML SYR IM ONE (10:00)
[2016-08-31] MEDS ORDERED: ASPIRIN 325 MG TAB PO ONE (12:30)
[2016-08-31] MEDS: SODIUM CHLOR 0.9% 1000 ML INJ 1,000 ML IV SCH ×2 (13:00→23:37)
--- NOTE | 2016-08-31 13:02 | HHI.PR ---
Subjective Remarks sleepy in bed , woke up to voice , aao in nad no cp , no sob lengthy d/w and daughteras mentioned below they told me pt had abd CT recently which showed mass , but pt did not have colonoscopy because GI needed cardiac clearance which pt never get to have Objective Vitals Vital Signs Date Time Temp Pulse Resp B/P Pulse Ox O2 Delivery O2 Flow Rate FiO2 08/31/16 11:00 98.0 80 18 113/66 95 08/31/16 11:00 102 08/31/16 09:00 98 08/31/16 08:00 92 08/31/16 07:30 98.4 77 18 114/78 96 08/31/16 07:00 82 08/31/16 04:00 97.8 92 18 111/66 94 08/31/16 00:00 98.3 94 20 103/72 98 08/30/16 20:00 97.0 85 18 134/71 94 08/30/16 20:00 92 08/30/16 18:00 90 08/30/16 17:00 100 08/30/16 16:00 96 08/30/16 15:00 100 08/30/16 15:00 98.0 94 22 115/68 93 08/30/16 14:00 78 08/30/16 13:00 84 I/O 08/30/16 08/30/16 08/30/16 08/31/16 08/31/16 08/31/16 07:00 15:00 23:00 07:00 15:00 23:00 Intake Total 720 ml 240 ml Output Total 325 ml 550 ml Balance 395 ml -310 ml Intake Oral 720 ml 240 ml Output Urine Total 325 ml 550 ml # Voids 3 # Bowel Movements 1 Result Diagram: 08/30/1640408/30/165 Objective Remarks GENERAL: This is a well-nourished, well-developed patient, in no apparent distress. SKIN: No rashes, warm and dry HEAD: Atraumatic. Normocephalic. EYES: Pupils equal round and reactive. Extraocular motions intact. No scleral icterus. ENT: Nose without bleeding, or drainage, Airway patent. NECK: Trachea midline. Supple CARDIOVASCULAR: Regular rate and rhythm without murmurs, gallops, or rubs. RESPIRATORY: Fair air entry bilaterally. No wheezes, rales, or rhonchi. GASTROINTESTINAL: Abdomen soft, non-tender, nondistended. Positive bowel sounds MUSCULOSKELETAL: Extremities without clubbing, cyanosis, or edema. Pedal pulses appreciated NEUROLOGICAL: Awake and alert. Moves all extremity. Normal speech.no focal neurological deficit A/P Assessment and Plan 89 years old male resents it with Status post fall suspected syncope mostly due to hypoglycemia Rhabdomyolysis due to the fall Increase troponin mostly due to fall, r/o underlaying ACS AKA on CKD stage III Elevated BNP>>CHF EF45% unknown systolic vs diastolic ? GI intra-abd mass suspecious for malignancy per the family History of A. fib patient on Pradaxa heart rate control History of hypertension History of hyperlipidemia Diabetes mellitus DVT prophylaxis on Pradaxa Plan: trop still inc with ck , will give asa , pt on pradaxa , ekg now , consult cardiology personaly reviewed 2decho >>Ef45%, global hypokinesia carotid ultrasound> unremarkable EEG no epilepsy, but encephalopathy s/p Hydration with D5 normal saline iv fluid, change to 0.9 ns at 100cc/hour cautiously due ti ef 45% with hx of possible GI malignancy, will need to r/o PE >>check D Dimer if +>>V/ Q scan/LE u/s due to WAGNER>> if high propability on 08/31: spent over 40 minutes d/w and daughter at the bed side explaining all the plan and answering their qs , we will ff the work up as above frequent Accu-Chek, ISS, diabetic education EKG personally reviewed by me showing atrial flutter/tachycardia with RVR heart rate is 100, LBBB which is old, left axis deviation CT of the head, chest x-ray, pelvic x-ray all personally reviewed by me unremarkable Syncope protocol to rule out other underlying cause>> 2-D echo, orthostatic blood pressure, Hold Lasix and Aldactone and losartan due to WAGNER and rhabdomyolysis Monitor BMP and CBC PT OT consult Consult case management for placement Continue home medication for the rest of medical problems including Pradaxa Gracie Garcia MD Aug 31, 2016 13:02
[2016-08-31 15:50] LABS: AUTOMATED NEUTROPHIL # 4.2 TH/MM3 (1.8-7.7); BASOPHIL # 0.1 TH/MM3 (0-0.2); BASOPHIL % 0.9 % (0.0-2.0); EOSINOPHIL # 0.1 TH/MM3 (0-0.4); EOSINOPHIL % 1.8 % (0.0-4.0); HEMATOCRIT 36.5 % (39.0-51.0); LYMPH % 20.8 % (9.0-44.0); LYMPHOCYTE # 1.4 TH/MM3 (1.0-4.8); MEAN CELL VOLUME 99.9 FL (80.0-100.0); MONO % 14.8 % (0.0-8.0); NEUT % 61.7 % (16.0-70.0); PLATELET COUNT 79 TH/MM3 (150-450); RED BLOOD COUNT 3.65 MIL/MM3 (4.50-5.90); RED CELL DISTRIBUTION WIDTH 16.3 % (11.6-17.2); WHITE BLOOD COUNT 6.8 TH/MM3 (4.0-11.0)
[2016-08-31 15:58] LABS: HEMO FLAGS AUTO DIFF
[2016-08-31 16:14] LABS: BICARBONATE 23.7 MEQ/L (21.0-32.0); POTASSIUM 4.4 MEQ/L (3.5-5.1)
[2016-08-31 16:47] LABS: OVALOCYTES 1+ (NORMAL); PLATELET ESTIMATE SMEAR LOW (NORMAL); PLATELET MORPHOLOGY NORMAL (NORMAL)
[2016-08-31 16:48] LABS: SCAN/DIFF AUTO DIFF CONFIRMED
--- NOTE | 2016-08-31 16:50 | MB ---
cc: TRISTIN HOPSON M.D.,RAKESH JACOBS MD DATE OF CONSULTATION: 08/31/2016 REASON FOR CONSULTATION: Syncope and elevated troponin. REFERRING PHYSICIAN Dr. Garcia HISTORY OF PRESENT ILLNESS: Mr. Pratt is an 89 year-old white male well known to me with a history of nonischemic cardiomyopathy and mild left ventricular dysfunction, paroxysmal atrial fibrillation/flutter, left bundle-branch block, and remote CVA. The patient has diabetes mellitus and was found unresponsive on the floor in the middle of the night by his two nights ago. EVAC was called and discovered a blood sugar of 36. He was given D50. Subsequently he does not recall any of the episode but is feeling much better today. He is on intravenous fluids at this time. He denies any chest discomfort now or in the recent past. He denies any shortness of breath. His tells me he has not been eating very well lately and she has been withholding some of his insulin dosing. MEDICATIONS: Carvedilol Lipitor ASA Novolog Pradaxa Finasteride IV .9NS 100ml/hr ALLERGIES: PCN PAST MEDICAL HISTORY: Past medical history includes that mentioned above. In addition he has had longstanding hypertension, diabetes with diabetic nephropathy. He has had episodes of hypotension and orthostatic hypotension in the past. Remote CVA over 20 years ago. He has had no recent congestive heart failure. Denies previous myocardial infarction. PAST SURGICAL HISTORY: 1. Hernia repair. 2. Cardiac catheterization, October 25, 2001 that revealed mild diffuse coronary disease, no obstructive disease. SOCIAL HISTORY The patient is living with his . Denies tobacco, alcohol or illicit drug use. He is normally active but does no regular exercise. FAMILY HISTORY Noncontributory. REVIEW OF SYSTEMS Except for that mentioned in the HPI is otherwise negative. Denies lower extremity edema or claudication. Denies previous syncopal episodes. Denies fevers, chills, night sweats, nausea, vomiting, diarrhea. Denies bleeding or clotting disorders. PHYSICAL EXAMINATION An elderly overweight white male lying in bed in no distress at this time. Vital signs: Blood pressure 113/66 mmHg. Heart rate is 74 and irregular, respiratory rate 18, temperature 98, oxygen saturation 95% on room air. Head: Normocephalic and atraumatic. Pupils equal, round and react to light. Sclerae anicteric. Extraocular movements intact. Neck: The neck is supple. There is no adenopathy. No jugular venous tension and 0 degrees. Carotid upstrokes are normal. No bruits. Thyroid exam is normal. Lungs: Clear. Heart: PMI is not displaced. S1-S2 irregular otherwise normal. No murmurs, gallops, clicks or rubs. Abdomen: Obese. Bowel sounds present, soft, nontender, no hepatosplenomegaly, masses or bruits. Extremities: No cyanosis, clubbing or edema. Perfusion adequate. There are no femoral bruits. Neurologic: He seems much clearer today than described from yesterday. His feels that he is improving. He is awake, alert and oriented x3, nonfocal. EKG from today is in sinus rhythm with first-degree AV block and left bundle branch block. Abnormal EKG compared to an EKG available from my office from August 31, 2015, sinus rhythm has replaced atrial fibrillation. Chest x-ray from yesterday, no acute disease. LABORATORY DATA CBC: white count 12.2, hemoglobin 14.1, hematocrit 41.4, platelet count 115,000, INR 1.3. Chemistries: sodium 145, potassium 3.8, chloride 112, CO2 24.6, BUN 34, creatinine 1.58 this is from yesterday, magnesium 2.3, AST 46, his total CPK on arrival 391, CK-MB percent 1.7. Troponin-I 0.16. BNP 227. Second set at 8 o'clock yesterday morning, CK patric to 1733 with an MB percent of 1 and a troponin-I of 0.54. Third set of 13:09 yesterday, CPK patric to 2,597 with an MB percent 0.9 and a troponin-I of 1.03. Echocardiogram performed on this admission yesterday showed a mild global left ventricular systolic dysfunction, ejection fraction 45 to 50%. No regional wall motion abnormality. Mild aortic, mitral and tricuspid regurgitation, elevated right ventricular systolic pressure, reported at 64 mmHg. Compared to an echocardiogram from my office on October 19, 2015, similar findings except the right ventricular systolic pressure at that time was normal at 20 mmHg. IMPRESSION: 1. Severe hypoglycemia, currently resolved. 2. Elevated troponin I. 3. History of nonischemic cardiomyopathy with mild left ventricular dysfunction, currently compensated. 4. Pulmonary hypertension. 5. Chronic left bundle branch block. 6. Paroxysmal atrial fibrillation currently in sinus rhythm. 7. Hypertensive heart disease. 8. History of remote CVA. 9. Advanced age. 10. Rhabdomyolysis. RECOMMENDATIONS: I suspect the patient's mildly elevated troponin level is related to his concomitant medical problems, especially his rhabdomyolysis and recent severe hypoglycemic episode. I do not feel any further inpatient cardiac testing is necessary at this time. Continue judicios fluid hydration and cardiac medications. Continue your workup and treatment for his hypoglycemia to avoid future events. I will not make any changes in his medical regimen from my standpoint and I will make a scheduled follow up as an outpatient in the near future. Thank you for allowing me to participate in the care of this patient. The above has been discussed in detail with the patient and his . MD MAYTE Walter/YOSVANY /2:50 PM /4:24 PM PATRICIA
[2016-08-31] MEDS: ALLOPURINOL 100 MG TAB PO SCH (20:35)
[2016-08-31] MEDS: FINASTERIDE 5 MG TAB PO SCH (20:35)
[2016-08-31] MEDS: TAMSULOSIN HCL 0.4 MG CAP PO SCH (20:36)
--- NOTE | 2016-08-31 23:11 | EKG ---
Date Performed: 08/31/2016 Time Performed: 13:16:34 PTAGE: 89 years EKG: Atrial flutter Leftward axis Left bundle branch block Inferior/lateral ST-T changes may be due to myocardial ischemia Low QRS voltages in limb leads Abnormal ECG PREVIOUS TRACING : 08/30/2016 04.18 Compared to prior tracing no significant change DOCTOR: Evan Chambers Interpretating Date/Time 08/31/2016 23:10:47
[2016-09-01] VITALS (22 sets, daily range): BP systolic 105–169; BP diastolic 68–82; PULSE 70–116; RESP 16–18; TEMP 97.5–98.8; O2SAT 93–96
[2016-09-01 04:26] LABS: AUTOMATED NEUTROPHIL # 3.6 TH/MM3 (1.8-7.7); BASOPHIL % 0.7 % (0.0-2.0); EOSINOPHIL # 0.1 TH/MM3 (0-0.4); EOSINOPHIL % 2.1 % (0.0-4.0); HEMATOCRIT 35.9 % (39.0-51.0); LYMPHOCYTE # 1.7 TH/MM3 (1.0-4.8); MEAN CELL VOLUME 100.4 FL (80.0-100.0); MEAN CORPUSCULAR HEMOGLOBIN 33.6 PG (27.0-34.0); MEAN CORPUSCULAR HGB CONC 33.5 % (32.0-36.0); NEUT % 55.2 % (16.0-70.0); PLATELET COUNT 77 TH/MM3 (150-450); RED BLOOD COUNT 3.57 MIL/MM3 (4.50-5.90); RED CELL DISTRIBUTION WIDTH 16.1 % (11.6-17.2); WHITE BLOOD COUNT 6.6 TH/MM3 (4.0-11.0)
[2016-09-01 04:31] LABS: HEMO FLAGS AUTO DIFF
[2016-09-01 04:54] LABS: BICARBONATE 24.5 MEQ/L (21.0-32.0); POTASSIUM 4.1 MEQ/L (3.5-5.1)
[2016-09-01] MEDS: LOW DOSE INSULIN NOVOLOG SUPPLEMENTAL SCALE SQ SCH ×4 (04:58→21:01)
[2016-09-01 05:30] LABS: SCAN/DIFF AUTO DIFF CONFIRMED
[2016-09-01] MEDS: SODIUM CHLOR 0.9% 1000 ML INJ 1,000 ML IV SCH ×2 (09:00→19:00)
[2016-09-01] MEDS: SODIUM CHLORIDE 0.9% FLUSH 5 ML FLUSH FLUSH SCH ×2 (09:57→21:00)
[2016-09-01] MEDS: DABIGATRAN ETEXILATE 75 MG CAP PO SCH (09:58)
[2016-09-01] MEDS: CARVEDILOL 3.125 MG TAB PO SCH ×2 (09:58→21:00)
[2016-09-01] MEDS: ATORVASTATIN 10 MG TAB PO SCH (09:58)
[2016-09-01] MEDS: INSULIN DETEMIR 100 UNITS/ML VIAL SQ SCH ×2 (10:30→21:01)
--- NOTE | 2016-09-01 16:37 | HHI.PR ---
Subjective Remarks Patient is more awake and alert today sitting in bed, he has a friend at the bedside as well as his daughter He is very pleasant and he likes to joke, slight short of breath no chest pain He's been seen by cardiology and recommended to continue current management, unlikely to need ischemic workup at this point Objective Vitals Vital Signs Date Time Temp Pulse Resp B/P Pulse Ox O2 Delivery O2 Flow Rate FiO2 09/01/16 15:00 74 09/01/16 13:00 76 09/01/16 12:00 100 09/01/16 11:30 97.6 103 18 110/74 93 09/01/16 11:00 96 09/01/16 10:00 84 09/01/16 10:00 169/80 09/01/16 09:00 116 09/01/16 08:00 72 09/01/16 07:30 97.5 72 18 112/71 95 09/01/16 07:00 76 09/01/16 06:00 90 09/01/16 05:00 80 09/01/16 04:00 77 09/01/16 03:00 88 09/01/16 02:00 86 09/01/16 01:00 82 09/01/16 00:00 98.8 80 16 105/68 94 09/01/16 00:00 87 08/31/16 23:00 98 08/31/16 22:00 74 08/31/16 21:00 84 08/31/16 20:00 75 08/31/16 20:00 98.3 75 16 121/72 97 08/31/16 18:57 90 08/31/16 17:00 76 I/O 08/31/16 08/31/16 08/31/16 09/01/16 09/01/16 09/01/16 07:00 15:00 23:00 07:00 15:00 23:00 Intake Total 240 ml 837 ml Output Total 550 ml 400 ml 700 ml Balance -310 ml 437 ml -700 ml Intake Oral 240 ml 620 ml IV Total 217 ml Output Urine Total 550 ml 400 ml 700 ml Result Diagram: 09/01/16 04109/01/16410 Objective Remarks GENERAL: This is a well-nourished, well-developed patient, in no apparent distress. SKIN: No rashes, warm and dry HEAD: Atraumatic. Normocephalic. EYES: Pupils equal round and reactive. Extraocular motions intact. No scleral icterus. ENT: Nose without bleeding, or drainage, Airway patent. NECK: Trachea midline. Supple CARDIOVASCULAR: Regular rate and rhythm without murmurs, gallops, or rubs. RESPIRATORY: Fair air entry bilaterally. No wheezes, rales, or rhonchi. GASTROINTESTINAL: Abdomen soft, non-tender, nondistended. Positive bowel sounds MUSCULOSKELETAL: Extremities without clubbing, cyanosis, or edema. Pedal pulses appreciated NEUROLOGICAL: Awake and alert. Moves all extremity. 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 GI intra-abd mass suspecious for malignancy per the family History of A. fib patient on Pradaxa heart rate control History of hypertension History of hyperlipidemia Diabetes mellitus DVT prophylaxis on Pradaxa Plan: Still awaiting record about GI mass Appreciate neurology consultation>> continue current management, hydration, telemetry monitoring, syncope workup 2decho >>Ef45%, global hypokinesia carotid ultrasound> unremarkable EEG no epilepsy, but encephalopathy s/p Hydration with D5 normal saline iv fluid, change to 0.9 ns at 100cc/hour cautiously due to ef 45% Hold Lasix and Aldactone and losartan due to WAGNER and rhabdomyolysis., Daily CK frequent Accu-Chek, ISS, diabetic education, add Levemir 7 units twice a day continue adjusting, 3 units NovoLog 3 times a day before meals with hx of possible GI malignancy, will need to r/o PE >>check D Dimer within normal limits EKG personally reviewed by me showing atrial flutter/tachycardia with RVR heart rate is 100, LBBB which is old, left axis deviation CT of the head, chest x-ray, pelvic x-ray all personally reviewed by me unremarkable Monitor BMP and CBC PT OT consult Consult case management for placement Continue home medication for the rest of medical problems including Pradaxa Gracie Garcia MD Sep 01, 2016 16:37
[2016-09-01] MEDS: INSULIN ASPART 1,000 UNITS/10 ML VIAL SQ SCH (17:00)
[2016-09-01] MEDS: TAMSULOSIN HCL 0.4 MG CAP PO SCH (21:00)
[2016-09-01] MEDS: ALLOPURINOL 100 MG TAB PO SCH (21:00)
[2016-09-01] MEDS: FINASTERIDE 5 MG TAB PO SCH (21:00)
--- NOTE | 2016-09-01 22:35 | HM ---
Date Performed: 08/30/2016 Time Performed: 20:24:00 HOOKUP DATE: 08/30/16 08:24:00 PM Tue ANALYSIS START TIME: 08/30/2016 8:29:00 PM ANALYSIS END TIME: 08/31/2016 8:32:59 PM PATIENT AGE: 89 PATIENT HEIGHT PATIENT WEIGHT DRUG LIST PATIENT DIAGNOSIS: ams TEST NARRATIVE: The patient's average heart rate was 87 BPM. Heart rates greater than 120 B PM were noted 2% of the time. No episodes of bradycardia were noted. No pauses exceeding 2.0 sec onds were noted. 1777 ventricular ectopics, which represented 1% of the total beat count, were no kashif. The highest ventricular ectopic frequency occurred from 09:00 AM to 10:00 AM Wed. During this time 125 VE(s) occurred. Ventricular ectopics were observed as 1672 isolated beat(s), as 42 couplet( s) and as 6 run(s). No supraventricular ectopics were noted. Multiple episodes of ST depressi on (defined as -1.0 mm or more) were noted in channel 1. The maximum depression of -2.4 mm occurred at 11:49:20 AM Wed. No episodes of ST depression (defined as -1.0 mm or more) were noted in channel 2. No episodes of ST depression (defined as -1.0 mm or more) were noted in channel 3. NO DIARY MAIN TAINED TEST INTERPRETATION: 1) Normal Sinus rhythm and atrial flutter predominate rhythms 2) Elevated heart rate greater than 120bpm for 2% of the time 3) No pauses noted 4) PVCs/Couplets/3-5 beat runs of ventricular ectopy, rare, 1% of the time 5) No supraventricular ectopics noted 6) Channel [address] depression, no other depressions noted 7) No neha ry with symptoms returned Signed b y : Evan Chambers
[2016-09-02] VITALS (25 sets, daily range): BP systolic 106–125; BP diastolic 54–75; PULSE 65–114; RESP 14–18; TEMP 97.6–98.1; O2SAT 93–96
[2016-09-02] MEDS: SODIUM CHLOR 0.9% 1000 ML INJ 1,000 ML IV SCH ×2 (05:00→14:22)
[2016-09-02] MEDS: LOW DOSE INSULIN NOVOLOG SUPPLEMENTAL SCALE SQ SCH ×4 (06:10→21:48)
[2016-09-02] MEDS: CARVEDILOL 3.125 MG TAB PO SCH ×2 (07:42→21:49)
[2016-09-02] MEDS: SODIUM CHLORIDE 0.9% FLUSH 5 ML FLUSH FLUSH SCH ×2 (07:42→21:50)
[2016-09-02] MEDS: DABIGATRAN ETEXILATE 75 MG CAP PO SCH (07:42)
[2016-09-02] MEDS: ATORVASTATIN 10 MG TAB PO SCH (07:42)
[2016-09-02] MEDS: INSULIN ASPART 1,000 UNITS/10 ML VIAL SQ SCH ×3 (07:42→15:46)
[2016-09-02] MEDS: INSULIN DETEMIR 100 UNITS/ML VIAL SQ SCH ×2 (07:45→21:48)
[2016-09-02 07:58] LABS: CKMB 3.2 NG/ML (0.5-3.6)
[2016-09-02] MEDS ORDERED: NOVOLOGSS SQ (15:23)
[2016-09-02] MEDS ORDERED: WALKER WHEELS/F1 MIS (15:23)
[2016-09-02] MEDS ORDERED: LEVEMIR SQ (15:23)
[2016-09-02] MEDS ORDERED: NOVOLOGP2 SQ (15:23)
--- NOTE | 2016-09-02 15:36 | HHI.PR ---
Subjective Remarks Doing well laying in bed, at the bedside CK nicely trending down its in the 700 today we'll continue iv fluid, continue titrating his basal and preprandial insulin, with cautious of hypoglycemia, emphasizing on multiple occasion the need for good feed We'll give him 1 more day of the fluid, Hopefully discharge in a.m. if continued to be stable with home health care and wheeled walker per PT recommendation Objective Vitals Vital Signs Date Time Temp Pulse Resp B/P Pulse Ox O2 Delivery O2 Flow Rate FiO2 09/02/16 15:00 88 09/02/16 14:00 84 09/02/16 13:00 82 09/02/16 12:00 97.8 114 16 108/75 95 09/02/16 12:00 96 09/02/16 11:00 98 09/02/16 10:00 86 09/02/16 09:00 78 09/02/16 08:00 97.6 81 14 106/54 95 09/02/16 08:00 77 09/02/16 07:00 68 09/02/16 06:30 72 09/02/16 05:00 72 09/02/16 04:48 97.8 74 125/70 93 09/02/16 04:00 74 09/02/16 03:00 65 09/02/16 02:00 70 09/02/16 01:00 72 09/02/16 00:00 98.1 81 109/71 96 09/02/16 00:00 76 09/01/16 23:00 73 09/01/16 22:00 70 09/01/16 21:00 76 09/01/16 20:00 96 09/01/16 19:00 75 09/01/16 19:00 97.9 82 125/68 96 I/O 09/01/16 09/01/16 09/01/16 09/02/16 09/02/16 09/02/16 07:00 15:00 23:00 07:00 15:00 23:00 Intake Total 240 ml Output Total 700 ml Balance -700 ml 240 ml Intake Oral 240 ml Output Urine Total 700 ml # Voids 5 Result Diagram: 09/01/16 0411 09/01/16 0411 Objective Remarks GENERAL: This is a well-nourished, well-developed patient, in no apparent distress. SKIN: No rashes, warm and dry HEAD: Atraumatic. Normocephalic. EYES: Pupils equal round and reactive. Extraocular motions intact. No scleral icterus. ENT: Nose without bleeding, or drainage, Airway patent. NECK: Trachea midline. Supple CARDIOVASCULAR: Regular rate and rhythm without murmurs, gallops, or rubs. RESPIRATORY: Fair air entry bilaterally. No wheezes, rales, or rhonchi. GASTROINTESTINAL: Abdomen soft, non-tender, nondistended. Positive bowel sounds MUSCULOSKELETAL: Extremities without clubbing, cyanosis, or edema. Pedal pulses appreciated NEUROLOGICAL: Awake and alert. Moves all extremity. 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 GI intra-abd mass suspecious for malignancy per the family >> follows and output History of A. fib patient on Pradaxa heart rate control History of hypertension History of hyperlipidemia Diabetes mellitus DVT prophylaxis on Pradaxa Plan: To: Continue iv fluid, EKG and in down nicely, repeat in a.m. if less than 500 patient can be discharged to continue holding diuretics until following up with PCP in 1 week Appreciate neurology consultation>> continue current management, hydration, telemetry monitoring, syncope workup 2decho >>Ef45%, global hypokinesia carotid ultrasound> unremarkable EEG no epilepsy, but encephalopathy s/p Hydration with D5 normal saline iv fluid, change to 0.9 ns at 100cc/hour cautiously due to ef 45% Hold Lasix and Aldactone and losartan due to WAGNER and rhabdomyolysis., Daily CK frequent Accu-Chek, ISS, diabetic education, add Levemir 7 units twice a day continue adjusting, 3 units NovoLog 3 times a day before meals with hx of possible GI malignancy, will need to r/o PE >>check D Dimer within normal limits EKG personally reviewed by me showing atrial flutter/tachycardia with RVR heart rate is 100, LBBB which is old, left axis deviation CT of the head, chest x-ray, pelvic x-ray all personally reviewed by me unremarkable Monitor BMP and CBC PT OT consult Consult case management for placement Continue home medication for the rest of medical problems including Pradaxa Discharge Planning In a.m., discharge order has been placed Gracie Garcia MD Sep 02, 2016 15:36
--- NOTE | 2016-09-02 15:42 | HHI.DS ---
Discharge Summary Admission Date Aug 30, 2016 at 06:53 Discharge Date: Sep 02, 2016 Admitting Diagnosis Hypoglycemia, AMS, intermediate troponin (1) Hypoglycemia ICD Code: E16.2 Diagnosis: Principal (2) Altered mental status ICD Code: R41.82 Diagnosis: Principal (3) Urinary tract infection ICD Code: N39.0 Diagnosis: Principal (4) Syncope ICD Code: R55 Diagnosis: Principal (5) Status post fall ICD Code: Z91.81 Diagnosis: Principal (6) Rhabdomyolysis ICD Code: M62.82 Diagnosis: Principal (7) Dehydration ICD Code: E86.0 Diagnosis: Principal Procedures None Brief History - From Admission 89 years old male with history of CHF, A. 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 In general patient is very poor historian he does not remember anything related to the episodes denied remembering chest pain short of breath lightheaded or dizziness, blurry vision, sweatiness or diaphoresis. Currently patient denies any chest pain short of breath, abdominal pain diarrhea or constipation, dysuria urgency or frequency, headache or lightheaded or dizziness CBC/BMP: 09/01/16 0411 09/01/16 0411 Significant Findings Laboratory Tests Test 08/31/16 09/01/16 09/02/16 15:42 04:11 06:18 Red Blood Count 3.65 MIL/MM3 3.57 MIL/MM3 (4.50-5.90) (4.50-5.90) Hemoglobin 12.4 GM/DL 12.0 GM/DL (13.0-17.0) (13.0-17.0) Hematocrit 36.5 % 35.9 % (39.0-51.0) (39.0-51.0) Platelet Count 79 TH/MM3 77 TH/MM3 (150-450) (150-450) Monocytes (%) (Auto) 14.8 % 16.0 % (0.0-8.0) (0.0-8.0) Monocytes # (Auto) 1.0 TH/MM3 1.1 TH/MM3 (0-0.9) (0-0.9) Platelet Estimate LOW (NORMAL) Ovalocytes 1+ (NORMAL) Blood Urea Nitrogen 36 MG/DL (7-18) 33 MG/DL (7-18) Creatinine 1.53 MG/DL (0.60-1.30) Estimat Glomerular Filtration 43 ML/MIN (>89) 55 ML/MIN (>89) Rate Random Glucose 295 MG/DL 220 MG/DL (74-106) (74-106) Calcium Level 8.1 MG/DL 7.9 MG/DL (8.5-10.1) (8.5-10.1) Mean Corpuscular Volume 100.4 FL (80.0-100.0) Chloride Level 108 MEQ/L (98-107) Total Creatine Kinase 723 U/L (39-308) Imaging Last Impressions Hip and Pelvis X-Ray 08/30/16409 Signed Impressions: Service Date/Time: Tuesday, August 30, 2016 04:33 - CONCLUSION: No acute disease. Anirudh Stevenson MD Head CT 08/30/16409 Signed Impressions: Service Date/Time: Tuesday, August 30, 2016 04:40 - CONCLUSION: No acute disease. There is age-related atrophy and right frontal lobe encephalomalacia. Anirudh Stevenson MD Chest X-Ray 08/30/16409 Signed Impressions: Service Date/Time: Tuesday, August 30, 2016 04:37 - CONCLUSION: No acute disease. Anirudh Stevenson MD Carotid Artery Ultrasound 08/30/16 0000 Signed Impressions: Service Date/Time: Tuesday, August 30, 2016 09:36 - CONCLUSION: 1. Mild plaque. 2. No hemodynamically significant stenosis in either carotid artery. Raheel Juares MD PE at Discharge GENERAL: This is a well-nourished, well-developed patient, in no apparent distress. SKIN: No rashes, warm and dry HEAD: Atraumatic. Normocephalic. EYES: Pupils equal round and reactive. Extraocular motions intact. No scleral icterus. ENT: Nose without bleeding, or drainage, Airway patent. NECK: Trachea midline. Supple CARDIOVASCULAR: Regular rate and rhythm without murmurs, gallops, or rubs. RESPIRATORY: Fair air entry bilaterally. No wheezes, rales, or rhonchi. GASTROINTESTINAL: Abdomen soft, non-tender, nondistended. Positive bowel sounds MUSCULOSKELETAL: Extremities without clubbing, cyanosis, or edema. Pedal pulses appreciated NEUROLOGICAL: Awake and alert. Moves all extremity. Normal speech.no focal neurological deficit Hospital Course Status post fall suspected syncope mostly due to hypoglycemia Rhabdomyolysis due to the fall- improved on IV fluid Increase troponin mostly due to fall,-cardiology consulted and recommended outpatient f/u. 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 CHF- chronic systolic- compensated- continue BB and Valsartan ? GI intra-abd mass suspicious for malignancy per the family >> follows as output History of A. fib patient on Pradaxa and BB- heart rate controlled. History of hypertension; continue BB and Valsartan. History of hyperlipidemia; continue statin Diabetes mellitus; continue long acting insulin DVT prophylaxis on Pradaxa [id number] encounter performed with the patient on discharge day, as well as physical exam, summary of hospitalization course and postdischarge plan has been D/W the patient. D/W nurse D/W case management associate. Discharge medications reviewed and printed and signed, post discharge follow up visit with PCP and other specialist as well as Brief hospital course and discharge summary has been placed. Pt Condition on Discharge: Fair Discharge Disposition: Discharge to SNF Discharge Time: > 30 minutes Discharge Instructions DIET: Follow Instructions for: Heart Healthy Diet, Diabetic Diet Activities you can perform: Regular-No Restrictions, See Additionl Instruction Other Activity Instructions: per pT recs New Orders: BASIC METABOLIC PROF - 2-3 Days BNP - 2-3 Days New Medications: Furosemide (Lasix) 20 Mg Tab 20 MG PO DAILY chf #30 Ref 0 TAB Potassium Chloride ER (Potassium Chloride ER) 10 Meq Tab 10 MEQ PO DAILY Electrolyte Replacement #30 Ref 0 TAB Walker with Front Wheels (Walker with Front Wheels) 1 Mis Mis 1 EA .ROUTE DIRECTED #1 Ref 0 EA Insulin Aspart Inj (Novolog Inj) 1,000 Unit/10 Ml Vial 5 UNITS SQ TIDAC dm Days 30 INJECTION Insulin Aspart Inj (Novolog Inj) 100 Unit/Ml Inj 1 UNITS SQ ACHS SLIDING SCALE accu-check AC/HS with Novolog subq coverage; 150- 200 two units 201-250 four units 251-300 six units 301-350 eight units 351-400 ten units inform PCP if < 75 or > 400. dm Days 30 INJECTION Insulin Detemir Inj (Levemir Inj) 1,000 unit/ 10 ML Vial 12 UNITS SQ Q12HR dm Days 30 INJECTION Continued Medications: Allopurinol (Allopurinol) 100 Mg Tab 100 MG PO HS Gout #30 Ref 0 TAB Atorvastatin (Atorvastatin) 10 Mg Tab 10 MG PO DAILY Cholesterol Management #30 Ref 0 TAB Carvedilol ER 24 HR (Coreg Cr 24 HR) 10 Mg Cap 10 MG PO DAILY #30 Ref 0 CAP Colchicine (Mitigare) 0.6 Mg Cap 0.6 MG PO DAILY Gout #30 Ref 0 CAP Dabigatran (Pradaxa) 75 Mg Cap 75 MG PO DAILY Blood Clot Prevention #60 Ref 0 CAP Finasteride (Finasteride) 5 Mg Tab 5 MG PO HS Do not crush. Manage Prostate Problems #30 Ref 0 TAB Tamsulosin (Tamsulosin) 0.4 Mg Cap 0.4 MG PO HS Manage Prostate Problems #30 Ref 0 CAP Valsartan (Valsartan) 40 Mg Tab 20 MG PO DAILY #30 Ref 0 TAB Discontinued Medications: Furosemide (Furosemide) 40 Mg Tab 40 MG PO DAILY #30 Ref 0 TAB Glimepiride (Glimepiride) 4 Mg Tab 4 MG PO DAILY Take with breakfast or first main meal Blood Sugar Management #30 Ref 0 TAB Glimepiride (Glimepiride) 4 Mg Tab 4 MG PO HS Take with breakfast or first main meal Blood Sugar Management #30 Ref 0 TAB Insulin Glargine Inj (Toujeo Solostar Pen Inj) 300 Unit/Ml Pen 80 UNITS SQ Blood Sugar Management Ref 0 PEN Insulin Lispro (Human) Inj (Humalog Kwikpen Pen Inj) 300 Unit/3 Ml Pen 35 UNITS SQ AC BREAKFAST Blood Sugar Management Ref 0 PEN Insulin Lispro (Human) Inj (Humalog Inj) 1,000 Unit/10 Ml Vial 25 UNITS SQ AC LUNCH Max dose at bedtime:( )units; sugars < 70,(0)units; sugars 150-199,(5)units; sugars 200-249,(10)units; sugars 250-299,(15)units; sugars 300-349,(20)units; sugars more than 349,(25)units. Blood Sugar Management #1 Ref 0 VIAL Insulin Lispro (Human) Inj (Humalog Kwikpen Pen Inj) 300 Unit/3 Ml Pen 50 UNITS SQ AC DINNER Blood Sugar Management Ref 0 PEN Spironolactone (Spironolactone) 25 Mg Tab 12.5 MG PO DAILY #15 Ref 0 TAB Gracie Garcia MD Sep 02, 2016 15:42 Jeanne Centeno MD Sep 03, 2016 09:00
[2016-09-02] MEDS: TAMSULOSIN HCL 0.4 MG CAP PO SCH (21:48)
[2016-09-02] MEDS: ALLOPURINOL 100 MG TAB PO SCH (21:49)
[2016-09-02] MEDS: FINASTERIDE 5 MG TAB PO SCH (21:49)
[2016-09-03] VITALS (13 sets, daily range): BP systolic 112–119; BP diastolic 64–82; PULSE 68–90; RESP 16–18; TEMP 97.8–97.9; O2SAT 93–97
[2016-09-03] MEDS: SODIUM CHLOR 0.9% 1000 ML INJ 1,000 ML IV SCH (01:00)
[2016-09-03] MEDS: CARVEDILOL 3.125 MG TAB PO SCH (08:18)
[2016-09-03] MEDS: SODIUM CHLORIDE 0.9% FLUSH 5 ML FLUSH FLUSH SCH (08:19)
[2016-09-03] MEDS: INSULIN ASPART 1,000 UNITS/10 ML VIAL SQ SCH ×2 (08:19→11:42)
[2016-09-03] MEDS: LOW DOSE INSULIN NOVOLOG SUPPLEMENTAL SCALE SQ SCH ×2 (08:19→11:00)
[2016-09-03] MEDS: ATORVASTATIN 10 MG TAB PO SCH (08:19)
[2016-09-03] MEDS: INSULIN DETEMIR 100 UNITS/ML VIAL SQ SCH (08:19)
[2016-09-03] MEDS: DABIGATRAN ETEXILATE 75 MG CAP PO SCH (08:19)
--- NOTE | 2016-09-03 08:53 | HHI.FF ---
Face to Face Verification Diagnosis: (1) Status post fall (2) Weakness Physical Therapy Order: Evaluate and Treat Home Health Nursing Order: Signs/symptoms of disease process Nursing assessment with vital signs I have seen patient Drake Pratt on 09/03/16. My clinical findings support the need for the requested home health care services because: Ltd mobility - disease progression I certify that my clinical findings support that this patient is homebound because: Unsteady gait/balance Jeanne Centeno MD Sep 03, 2016 08:53
--- NOTE | 2016-09-03 08:58 | HHI.PR ---
Subjective Remarks resting comfortably with no chest pain or sob. d/w the RN and no acute issues over night. Objective Vitals Vital Signs Date Time Temp Pulse Resp B/P Pulse Ox O2 Delivery O2 Flow Rate FiO2 09/03/16 06:00 78 09/03/16 05:00 97.9 80 16 119/64 93 09/03/16 05:00 86 09/03/16 04:00 68 09/03/16 03:00 76 09/03/16 00:00 90 09/02/16 23:00 82 09/02/16 22:00 88 09/02/16 21:00 90 09/02/16 20:00 98.1 98 16 122/71 95 09/02/16 19:00 114 09/02/16 18:00 98 09/02/16 17:00 102 09/02/16 16:00 86 09/02/16 16:00 97.9 86 18 113/69 96 09/02/16 15:00 88 09/02/16 14:00 84 09/02/16 13:00 82 09/02/16 12:00 97.8 114 16 108/75 95 09/02/16 12:00 96 09/02/16 11:00 98 09/02/16 10:00 86 09/02/16 09:00 78 I/O 09/02/16 09/02/16 09/02/16 09/03/16 09/03/16 09/03/16 07:00 15:00 23:00 07:00 15:00 23:00 Intake Total 240 ml 1028 ml Balance 240 ml 1028 ml Intake Oral 240 ml 520 ml IV Total 508 ml # Voids 5 4 4 # Bowel Movements 1 Result Diagram: 09/01/16 04109/01/16410 Imaging Last Impressions Hip and Pelvis X-Ray 08/30/16409 Signed Impressions: Service Date/Time: Tuesday, August 30, 2016 04:33 - CONCLUSION: No acute disease. Anirudh Stevenson MD Head CT 08/30/16409 Signed Impressions: Service Date/Time: Tuesday, August 30, 2016 04:40 - CONCLUSION: No acute disease. There is age-related atrophy and right frontal lobe encephalomalacia. Anirudh Stevenson MD Chest X-Ray 2/21/17 0410 Signed Impressions: Service Date/Time: Tuesday, August 30, 2016 04:37 - CONCLUSION: No acute disease. Anirudh Stevenson MD Carotid Artery Ultrasound 08/30/16 0000 Signed Impressions: Service Date/Time: Tuesday, August 30, 2016 09:36 - CONCLUSION: 1. Mild plaque. 2. No hemodynamically significant stenosis in either carotid artery. Raheel Juares MD Objective Remarks GENERAL: This is a well-nourished, well-developed patient, in no apparent distress. CARDIOVASCULAR: Regular rate and regular rhythm without murmurs, gallops, or rubs. RESPIRATORY: Clear to auscultation. Breath sounds equal bilaterally. No wheezes , rales, or rhonchi. GASTROINTESTINAL: Abdomen soft, non-tender, nondistended. Normal, active bowel sounds MUSCULOSKELETAL: Extremities without clubbing, cyanosis, or edema. NEURO: Alert & Oriented x4 to person, place, time, situation. Moves all ext x4 Procedures None Medications and IVs Current Medications Dextrose (D50w (Syr) Inj) 50 ml STK-MED ONCE .ROUTE Last administered on 04:26; Start 08/30/16 at 04:23; Stop 08/30/16 at 04:24; Status DC Dextrose 25 ml 25 ml ONCE ONCE IV PUSH ; Start 08/30/16 at 04:45; Stop at 04:46; Status DC Dextrose/Sodium Chloride (D5W-1/2 NS 1000 ml Inj) 1,000 ml @ 70 mls/hr [id number] IV Last administered on 08/30/16 05:05; Start 08/30/16 at 04:45; Stop at 12:55; Status DC Aspirin (Aspirin Chew) 81 mg ONCE ONCE CHEW Last administered on 08/30/16 06: 39; Start 08/30/16 at 06:00; Stop 08/30/16 at 06:01; Status DC Nitroglycerin (Nitroglycerin 2% Oint) 1 inch ONCE ONCE TOPICAL ; Start at 06:00; Stop 08/30/16 at 06:01; Status DC IV Flush (NS Flush) 2 ml UNSCH PRN FLUSH FLUSH AFTER USING IV ACCESS; Start at 07:00 IV Flush (NS Flush) 2 ml BID FLUSH Last administered on 09/02/16 21:50; Start 08/30/16 at 09:00 Ondansetron HCl (Zofran Inj) 4 mg Q6H PRN IVP NAUSEA OR VOMITING; Start at 07:00 Naloxone HCl (Narcan Inj) 0.4 mg UNSCH PRN IV SEE LABEL COMMENTS; Start at 07:00 Allopurinol (Zyloprim) 100 mg HS PO Last administered on 09/02/16 21:49; Start 08/30/16 at 21:00 Atorvastatin Calcium (Lipitor) 10 mg DAILY PO Last administered on 09/03/16 08 :19; Start 08/30/16 at 09:00 Dabigatran (Pradaxa) 75 mg DAILY PO Last administered on 09/03/16 08:19; Start 08/30/16 at 09:00 Finasteride (Proscar) 5 mg HS PO Last administered on 09/02/16 21:49; Start at 21:00 Furosemide (Lasix) 40 mg DAILY PO Last administered on 08/30/16 09:03; Start 08/30/16 at 09:00; Status Hold Spironolactone (Aldactone) 12.5 mg DAILY PO Last administered on 08/30/16 09: 02; Start 08/30/16 at 09:00; Status Hold Tamsulosin HCl (Flomax) 0.4 mg HS PO Last administered on 09/02/16 21:48; Start 08/30/16 at 21:00 Valsartan (Diovan) 20 mg DAILY PO Last administered on 08/30/16 09:03; Start 08/30/16 at 09:00; Status Hold Carvedilol 3.125 mg 3.125 mg BID PO Last administered on 09/03/16 08:18; Start 08/30/16 at 09:00 Cefepime HCl/ Sodium Chloride (Maxipime Inj/NS Inj) 100 ml @ 200 mls/hr ONCE STAT IV Last administered on 08/30/16 09:05; Start 08/30/16 at 07:44; Stop at 08:13; Status DC Miscellaneous (Pill Splitter) 1 ea UNSCH PRN OTHER SEE LABEL COMMENTS; Start at 08:00 Pneumococcal Polyvalent Vaccine (Pneumovax-23 Inj) 25 mcg ONCE ONCE IM ; Start 08/31/16 at 10:00; Stop 08/31/16 at 10:01; Status DC Hydralazine HCl (Apresoline Inj) 10 mg Q4H PRN IV PUSH blood pressure 160/90; Start 08/30/16 at 12:30 Dextrose (D50w (Vial) Inj) 25 ml UNSCH PRN IV PUSH HYPOGLYCEMIA - SEE COMMENTS ; Start 08/30/16 at 18:30 Glucagon (Glucagon Inj) 1 mg UNSCH PRN OTHER HYPOGLYCEMIA-SEE COMMENTS; Start 08/30/16 at 18:30 Insulin Aspart (NovoLOG SUPPLEMENTAL SCALE) 1 ACHS SLIDING SCALE SQ Last administered on 09/03/16 08:19; Start 08/30/16 at 21:00 Aspirin 325 mg 325 mg ONCE ONCE PO Last administered on 08/31/16 13:48; Start 08/31/16 at 12:30; Stop 08/31/16 at 12:33; Status DC Sodium Chloride (NS 1000 ml Inj) 1,000 ml @ 100 mls/hr Q10H IV Last administered on 09/03/16 01:00; Start 08/31/16 at 13:00 Insulin Detemir (Levemir Inj) 7 units Q12HR SQ Last administered on 09/02/16 07:45; Start 09/01/16 at 10:30; Stop 09/02/16 at 10:06; Status DC Insulin Aspart (NovoLOG INJ) 3 units TIDAC SQ Last administered on 09/02/16 07 :42; Start 09/01/16 at 17:00; Stop 09/02/16 at 10:06; Status DC Insulin Aspart (NovoLOG INJ) 5 units TIDAC SQ Last administered on 09/03/16 08 :19; Start 09/02/16 at 12:00 Insulin Detemir (Levemir Inj) 12 units Q12HR SQ Last administered on 09/03/16 08:19; Start 09/02/16 at 21:00 A/P Assessment and Plan A/P Status post fall suspected syncope mostly due to hypoglycemia Rhabdomyolysis due to the fall- improved on IV fluid Increase troponin mostly due to fall,-cardiology consulted and recommended outpatient follow-up. 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 CHF- chronic systolic- compensated- continue BB and Valsartan ? GI intra-abd mass suspicious for malignancy per the family >> follows and output History of A. fib patient on Pradaxa and BB- heart rate controlled. History of hypertension; continue BB and Valsartan. History of hyperlipidemia; continue statin Diabetes mellitus; continue long acting insulin DVT prophylaxis on Pradaxa Discharge Planning dc home with C. see med list. f/u; pcp. d/w the patient and RN. time spent 32 min. Jeanne Centeno MD Sep 03, 2016 08:57
[2016-09-03] MEDS ORDERED: NOVOLOGSS SQ (09:09)
[2016-09-03] MEDS ORDERED: FURO1TAB62 PO (09:11)
[2016-09-03] MEDS ORDERED: POTA10TA2 PO (09:12)
== END 2016-09-03 15:42 | DRG 638 ==
LOC: NEPC 03:58 → NEDA 06:53 → HCIN 10:23
PROVIDERS: ADMIT Internal Medicine; ATTEND Internal Medicine
DX: E11.649 Type 2 diabetes mellitus with hypoglycemia without coma (principal); M62.82 Rhabdomyolysis; N17.9 Acute kidney failure, unspecified; I42.9 Cardiomyopathy, unspecified; I48.92 Unspecified atrial flutter; G93.89 Other specified disorders of brain; I48.0 Paroxysmal atrial fibrillation; I27.2 Other secondary pulmonary hypertension; E11.21 Type 2 diabetes mellitus with diabetic nephropathy; E11.40 Type 2 diabetes mellitus with diabetic neuropathy, unspecified; I12.9 Hypertensive chronic kidney disease with stage 1 through stage 4 chronic kidney disease, or unspecified chronic kidney disease; R55 Syncope and collapse; N39.0 Urinary tract infection, site not specified; I50.9 Heart failure, unspecified; M79.604 Pain in right leg; E78.5 Hyperlipidemia, unspecified; Z86.73 Personal history of transient ischemic attack (TIA), and cerebral infarction without residual deficits; I44.7 Left bundle-branch block, unspecified; N40.0 Benign prostatic hyperplasia without lower urinary tract symptoms; Z87.442 Personal history of urinary calculi; Z79.4 Long term (current) use of insulin; N18.3 Chronic kidney disease, stage 3 (moderate); M10.9 Gout, unspecified; Z88.0 Allergy status to penicillin; E11.22 Type 2 diabetes mellitus with diabetic chronic kidney disease; W19.XXXA Unspecified fall, initial encounter; I44.0 Atrioventricular block, first degree; R74.8 Abnormal levels of other serum enzymes; R19.00 Intra-abdominal and pelvic swelling, mass and lump, unspecified site; D72.825 Bandemia; E86.0 Dehydration
CPT/HCPCS: 70450; 71010; 73502; 80048; 80053; 81001; 82550; 82552; 82948; 83036; 83690; 83735; 83880; 84484; 85007; 85025; 85027; 85379; 85610; 85730; 87086; 93005; 93225; 93226; 93306; 93880; 95819; 96365; 96375; J0692; J1815; J7030

== ENCOUNTER → 2016-09-26 | Outpatient (CLI) | payer MEDICARE, OTHER ==
[~2016-09-26] MED LIST changes: -ATOR10 PO; +ATOR10TA15 PO; +CARV10 PO; -CARV20 PO; +COLC1CAP PO; -COLC1TAB7 PO; -DIGO0.25 PO; -DIOV40TA PO; +FINA5TAB2 PO; +FURO1TAB62 PO; -FURO1TAB93 PO; +HUMALOG SQ; -LANTUSP SQ; +LEVEMIR SQ; +NOVOLOGSS SQ; +POTA10TA2 PO; -PROS5TAB2 PO; -SAW500CA6 PO; -SPIR25TA PO; +TAMS0.4C4 PO; -TAMS0.4C67 PO; +VALS1TAB63 PO; +WALKER WHEELS/F1 MIS
[2016-09-26 09:46] LABS: HEMATOCRIT 39.9 % (39.0-51.0); MEAN CELL VOLUME 99.3 FL (80.0-100.0); MEAN CORPUSCULAR HEMOGLOBIN 33.3 PG (27.0-34.0); MEAN CORPUSCULAR HGB CONC 33.6 % (32.0-36.0); PLATELET COUNT 94 TH/MM3 (150-450); RED BLOOD COUNT 4.02 MIL/MM3 (4.50-5.90); RED CELL DISTRIBUTION WIDTH 16.2 % (11.6-17.2); WHITE BLOOD COUNT 6.2 TH/MM3 (4.0-11.0)
[2016-09-26 09:49] LABS: REVIEW FLAG FINAL
[2016-09-26 10:29] LABS: HEMOGLOBIN A1a 1.1 %; HEMOGLOBIN A1b 0.8 %; HEMOGLOBIN Ao 82.2 %; HEMOGLOBIN F 1.2 %; HEMOGLOBIN LA1C 2.3 %; HEMOGLOBIN P3 4.4 %
[2016-09-26 10:36] LABS: ALKALINE PHOSPHATASE 97 U/L (45-117); ALT (GPT) 38 U/L (12-78); ANION GAP 9 MEQ/L (5-15); AST (GOT) 36 U/L (15-37); BICARBONATE 25.6 MEQ/L (21.0-32.0); BLOOD UREA NITROGEN 34 MG/DL (7-18); CHLORIDE 103 MEQ/L (98-107); GLOMERULAR FILTRATION RATE 41 ML/MIN (>89); GLUCOSE,FASTING 163 MG/DL (74-99); HDL CHOLESTEROL 22.2 MG/DL (40.0-60.0); LDL CHOLESTEROL 55 MG/DL (0-99); POTASSIUM 4.3 MEQ/L (3.5-5.1); SODIUM (NA) 138 MEQ/L (136-145); TOTAL BILIRUBIN ADULT 0.6 MG/DL (0.2-1.0)
== END ==
LOC: PLAB 07:22
PROVIDERS: ATTEND Family Medicine
DX: I48.91 Unspecified atrial fibrillation (principal); I50.9 Heart failure, unspecified; N18.3 Chronic kidney disease, stage 3 (moderate); E11.9 Type 2 diabetes mellitus without complications
CPT/HCPCS: 36415; 80053; 80061; 83036; 84443; 85027

== ENCOUNTER → 2016-10-24 | Outpatient (CLI) | payer MEDICARE, OTHER ==
[2016-10-24 13:38] LABS: HEMATOCRIT 39.1 % (39.0-51.0); MEAN CELL VOLUME 99.7 FL (80.0-100.0); MEAN CORPUSCULAR HEMOGLOBIN 33.5 PG (27.0-34.0); MEAN CORPUSCULAR HGB CONC 33.6 % (32.0-36.0); PLATELET COUNT 96 TH/MM3 (150-450); RED BLOOD COUNT 3.92 MIL/MM3 (4.50-5.90); RED CELL DISTRIBUTION WIDTH 15.5 % (11.6-17.2); WHITE BLOOD COUNT 6.6 TH/MM3 (4.0-11.0)
[2016-10-24 13:40] LABS: REVIEW FLAG FINAL
[2016-10-24 14:00] LABS: ALKALINE PHOSPHATASE 88 U/L (45-117); ALT (GPT) 30 U/L (12-78); ANION GAP 8 MEQ/L (5-15); AST (GOT) 26 U/L (15-37); BICARBONATE 26.4 MEQ/L (21.0-32.0); BLOOD UREA NITROGEN 34 MG/DL (7-18); CHLORIDE 106 MEQ/L (98-107); GLOMERULAR FILTRATION RATE 41 ML/MIN (>89); GLUCOSE,FASTING 194 MG/DL (74-99); HDL CHOLESTEROL 26.9 MG/DL (40.0-60.0); LDL CHOLESTEROL 66 MG/DL (0-99); POTASSIUM 4.1 MEQ/L (3.5-5.1); SODIUM (NA) 140 MEQ/L (136-145); TOTAL BILIRUBIN ADULT 0.7 MG/DL (0.2-1.0)
[2016-10-24 17:03] LABS: HEMOGLOBIN A1a 1.1 %; HEMOGLOBIN A1b 0.9 %; HEMOGLOBIN F 1.3 %; HEMOGLOBIN LA1C 2.6 %; HEMOGLOBIN P3 6.2 %
== END ==
LOC: PLAB 09:01
PROVIDERS: ATTEND Internal Medicine Interventional Cardiology
DX: I11.9 Hypertensive heart disease without heart failure (principal); I42.0 Dilated cardiomyopathy; I44.7 Left bundle-branch block, unspecified; I48.0 Paroxysmal atrial fibrillation; I27.2 Other secondary pulmonary hypertension; I63.9 Cerebral infarction, unspecified; I48.91 Unspecified atrial fibrillation; I50.9 Heart failure, unspecified; N18.3 Chronic kidney disease, stage 3 (moderate); E11.9 Type 2 diabetes mellitus without complications
CPT/HCPCS: 36415; 80053; 80061; 83036; 84443; 85027

== ENCOUNTER 2016-12-11 15:38 | Emergency (ER) | payer MEDICARE, OTHER ==
[~2016-12-11 15:38] MED LIST changes: -HUMALOG SQ
[2016-12-11 15:41] VITALS: BP 93/52; PULSE 88; RESP 20; TEMP 97.8; O2SAT 98
--- NOTE | 2016-12-11 16:16 | PD ---
Physical Exam Date Seen by Provider: Dec 11, 2016 Time Seen by Provider: 16:10 Narrative 89 y/o male with increased sleeping and complaints of DEJESUS and fatigue over the past week. Denies Nausea, Vomiting, Diarrhea, Constipation, or Urinary Symptoms. Denies Cough, SOB, or Chest Pain. Denies Pain Currently. Patients VS stable. Awaiting Bed Placement. Data Data Last Documented VS Vital Signs Date Time Temp Pulse Resp B/P Pulse Ox O2 Delivery O2 Flow Rate FiO2 12/11/16 15:41 97.8 88 20 93/52 98 Room Air [facility] Medical Record Reviewed: Yes Supervised Visit with KATE: Yes Condition: Stable Shay Gil Dec 11, 2016 16:16
[2016-12-11 17:32] VITALS: BP 137/58; PULSE 82; RESP 20; O2SAT 98
[2016-12-11] MEDS ORDERED: HUMALOG SQ (17:42)
[2016-12-11] MEDS ORDERED: SODIUM CHLORID 0.9% 500 ML INJ 500 ML IV ONE (17:45)
[2016-12-11] MEDS ORDERED: SODIUM CHLORIDE 0.9% FLUSH 5 ML FLUSH IV FLUSH PRN (17:45)
--- NOTE | 2016-12-11 17:47 | PD ---
HPI Chief Complaint: General Weakness Time Seen by Provider: 17:20 Travel History International Travel<30 days: No Contact w/Intl Traveler<30days: No Traveled to known affect area: No History of Present Illness HPI Patient is a 89 year old male with history of chf, afib, hyperlipidemia, cva, dm , LBBB, BPH, hypertension, diabetic nephropathy, presents to emergency room with his for evaluation. As per patient's , patient has been lethargic for the past week, he sleeps 20 out of 24 hours per day. Patient's reports that patient has had overall decreased appetite, reports that he only had a half of a cheeseburger today and refuses to eat. Reports that over the past week, he has been complaining left frontal and posterior headache, patient with no headache at this time. is concerned as patient's blood sugars have been in the 200s, reports that this is higher than normal. reports that she is concerned as patient is not acting like his normal self. Patient at this time is alert and oriented to person and place. He reports that he feels fine, no headache, reports that he has a great appetite and has been eating all his meals. Patient is angry that his made him come to the ER. As per being not alert to time - reports that patient may have some dementia - she isn't sure of this diagnosis but "I suspect it." Patient with no fever/chills. No chest pain/abdominal pain. No other c/o. PFSH Past Medical History Atrial Fibrillation: Yes Cancer: No Cardiovascular Problems: Yes (CHR, ATR. FIB., LBBB) Diabetes: Yes Endocrine: Yes Gout: Yes Genitourinary: Yes (BPH, RENAL CALCULI) Hepatitis: No Hiatal Hernia: No Hypertension: Yes Immune Disorder: No Musculoskeletal: No Neurologic: Yes (STROKE, NEUROPATHY HANDS/ TOES) Psychiatric: No Reproductive: No Respiratory: No Thyroid Disease: No Past Surgical History Abdominal Surgery: Yes (ABD. HERNIA REP.) AICD: No Joint Replacement: No Oral Surgery: Yes (T & A) Pacemaker: No Other Surgery: Yes Social History Alcohol Use: No Tobacco Use: No Substance Use: No Allergies-Medications (Allergen,Severity, Reaction): Coded Allergies: Penicillin (Unverified Allergy, Unknown, 12/11/16) Reported Meds & Prescriptions Reported Meds & Active Scripts Active Potassium Chloride ER (Potassium Chloride) 10 Meq Tab 10 Meq PO DAILY Lasix (Furosemide) 20 Mg Tab 20 Mg PO DAILY Levemir Inj (Insulin Detemir) 1,000 unit/ 10 ML Vial 12 Units SQ Q12HR 30 Days Reported Humalog Inj (Insulin Human Lispro) 1,000 Unit/10 Ml Vial 5-25 Units SQ ACHS Max dose at bedtime:( )units; sugars < 70,(0)units; sugars 150-199,(5)units; sugars 200-249,(10)units; sugars 250-299,(15)units; sugars 300-349,(20)units; sugars more than 349,(25)units. Tamsulosin (Tamsulosin HCl) 0.4 Mg Cap 0.4 Mg PO HS Mitigare (Colchicine) 0.6 Mg Cap 0.6 Mg PO DAILY Allopurinol 100 Mg Tab 100 Mg PO HS Finasteride 5 Mg Tab 5 Mg PO HS Do not crush. Pradaxa (Dabigatran) 75 Mg Cap 75 Mg PO DAILY Coreg Cr 24 HR (Carvedilol) 10 Mg Cap 10 Mg PO DAILY Valsartan 40 Mg Tab 20 Mg PO DAILY Atorvastatin (Atorvastatin Calcium) 10 Mg Tab 10 Mg PO DAILY Review of Systems General / Constitutional: No: Fever Eyes: No: Visual changes HENT: No: Headaches Cardiovascular: No: Chest Pain or Discomfort Respiratory: No: Shortness of Breath Gastrointestinal: No: Abdominal Pain Genitourinary: No: Dysuria Musculoskeletal: No: Pain Skin: No Rash Neurologic: Positive: Weakness, Headache Psychiatric: No: Depression Endocrine: No: Polydipsia Hematologic/Lymphatic: No: Easy Bruising Physical Exam Narrative GENERAL: nad, nontoxic, alert only to person SKIN: Focused skin assessment warm/dry. HEAD: Atraumatic. Normocephalic. EYES: Pupils equal and round. No scleral icterus. No injection or drainage. ENT: No nasal bleeding or discharge. Mucous membranes pink and moist. NECK: Trachea midline. No JVD. CARDIOVASCULAR: Regular rate and rhythm. No murmur appreciated. RESPIRATORY: No accessory muscle use. Clear to auscultation. Breath sounds equal bilaterally. GASTROINTESTINAL: Abdomen soft, non-tender, nondistended. Hepatic and splenic margins not palpable. MUSCULOSKELETAL: No obvious deformities. No clubbing. No cyanosis. No edema. NEUROLOGICAL: Awake and alert. No obvious cranial nerve deficits. Motor grossly within normal limits. Normal speech. PSYCHIATRIC: Appropriate mood and affect; insight and judgment normal. Data Data Last Documented VS Vital Signs Date Time Temp Pulse Resp B/P Pulse Ox O2 Delivery O2 Flow Rate FiO2 12/11/16 18:37 75 16 96/59 96 Room Air 12/11/16 15:41 97.8 Orders Bedside Glucose ROSETTA.AC&HS (12/11/16 17:22) Electrocardiogram (12/11/16 ) Complete Blood Count With Diff (12/11/16 17:32) Comprehensive Metabolic Panel (12/11/16 17:32) Prothrombin Time / Inr (Pt) (12/11/16 17:32) Act Partial Throm Time (Ptt) (12/11/16 17:32) Urinalysis - C+S If Indicated (12/11/16 17:32) Chest, Single Ap (12/11/16 17:32) Ecg Monitoring (12/11/16 17:32) Iv Access Insert/Monitor (12/11/16 17:32) Sodium Chloride 0.9% Flush (Ns Flush) (12/11/16 17:45) Ct Brain W/O Iv Contrast(Rout) (12/11/16 ) Sodium Chlorid 0.9% 500 Ml Inj (Ns 500 M (12/11/16 17:45) Labs Laboratory Tests Test 12/11/16 17:45 White Blood Count 9.1 TH/MM3 Red Blood Count 3.98 MIL/MM3 Hemoglobin 13.2 GM/DL Hematocrit 39.6 % Mean Corpuscular Volume 99.5 FL Mean Corpuscular Hemoglobin 33.2 PG Mean Corpuscular Hemoglobin 33.4 % Concent Red Cell Distribution Width 16.0 % Platelet Count 115 TH/MM3 Mean Platelet Volume 11.8 FL Neutrophils (%) (Auto) 64.0 % Lymphocytes (%) (Auto) 21.1 % Monocytes (%) (Auto) 13.1 % Eosinophils (%) (Auto) 0.8 % Basophils (%) (Auto) 1.0 % Neutrophils # (Auto) 5.8 TH/MM3 Lymphocytes # (Auto) 1.9 TH/MM3 Monocytes # (Auto) 1.2 TH/MM3 Eosinophils # (Auto) 0.1 TH/MM3 Basophils # (Auto) 0.1 TH/MM3 CBC Comment DIFF FINAL Differential Comment Prothrombin Time 15.5 SEC Prothromb Time International 1.4 RATIO Ratio Activated Partial 44.3 SEC Thromboplast Time Urine Color YELLOW Urine Turbidity CLEAR Urine pH 5.0 Urine Specific [place] 1.011 Urine Protein NEG mg/dL Urine Glucose (UA) NEG mg/dL Urine Ketones NEG mg/dL Urine Occult Blood NEG Urine Nitrite NEG Urine Bilirubin NEG Urine Urobilinogen LESS THAN 2.0 MG/DL Urine Leukocyte Esterase NEG Urine RBC 0-3 /hpf Urine WBC 0-2 /hpf Urine Squamous Epithelial 0-5 /hpf Cells Urine Bacteria NONE /hpf Sodium Level 140 MEQ/L Potassium Level 4.3 MEQ/L Chloride Level 105 MEQ/L Carbon Dioxide Level 26.9 MEQ/L Anion Gap 8 MEQ/L Blood Urea Nitrogen 53 MG/DL Creatinine 1.82 MG/DL Estimat Glomerular Filtration 35 ML/MIN Rate Random Glucose 199 MG/DL Calcium Level 8.6 MG/DL Total Bilirubin 0.5 MG/DL Aspartate Amino Transf 34 U/L (AST/SGOT) Alanine Aminotransferase 38 U/L (ALT/SGPT) Alkaline Phosphatase 117 U/L Total Protein 6.6 GM/DL Albumin 3.1 GM/DL MDM Medical Decision Making Medical Screen Exam Complete: Yes Emergency Medical Condition: Yes Interpretation(s) ekg at 1743: afib at 88bpm, qt/qtc: 433/479, lbbb Vital Signs Date Time Temp Pulse Resp B/P Pulse Ox O2 Delivery O2 Flow Rate FiO2 12/11/16 17:32 82 20 137/58 98 Room Air 12/11/16 15:41 97.8 88 20 93/52 98 Room Air Differential Diagnosis encephalopathy, uti, pneumonia, ich, electrolyte abnormality Narrative Course Patient is an 89-year-old male brought to the emergency room by his for evaluation of altered mental status. Patient is alert to person and place, reports that he feels fine and does not want to be treated in the emergency room. Patient's reports that patient has been lethargic over the past week , reports overall decreased by mouth intake and that he is sleeping 20 out of 24 hours per day. is concerned that something is wrong with him. also concerned that patient's blood sugars have been high, reports that he is a diabetic. Blood sugar here is 201. Plan to obtain CT to the head, obtain lab work, EKG, x-rays of the chest, UA. Will observe on child care giver. Last Impressions Chest X-Ray 12/11/16 1732 Signed Impressions: Service Date/Time: Sunday, December 11, 2016 17:56 - CONCLUSION: Diminished lung volumes with clear lungs. Raheel Juares MD Head CT 12/11/16 0000 Signed Impressions: Service Date/Time: Sunday, December 11, 2016 17:59 - CONCLUSION: 1. Old right frontal infarct. 2. Scattered sinusitis. Raheel Juares MD Laboratory Tests Test 12/11/16 17:45 White Blood Count 9.1 TH/MM3 (4.0-11.0) Red Blood Count 3.98 MIL/MM3 (4.50-5.90) Hemoglobin 13.2 GM/DL (13.0-17.0) Hematocrit 39.6 % (39.0-51.0) Mean Corpuscular Volume 99.5 FL (80.0-100.0) Mean Corpuscular Hemoglobin 33.2 PG (27.0-34.0) Mean Corpuscular Hemoglobin 33.4 % Concent (32.0-36.0) Red Cell Distribution Width 16.0 % (11.6-17.2) Platelet Count 115 TH/MM3 (150-450) Mean Platelet Volume 11.8 FL (7.0-11.0) Neutrophils (%) (Auto) 64.0 % (16.0-70.0) Lymphocytes (%) (Auto) 21.1 % (9.0-44.0) Monocytes (%) (Auto) 13.1 % (0.0-8.0) Eosinophils (%) (Auto) 0.8 % (0.0-4.0) Basophils (%) (Auto) 1.0 % (0.0-2.0) Neutrophils # (Auto) 5.8 TH/MM3 (1.8-7.7) Lymphocytes # (Auto) 1.9 TH/MM3 (1.0-4.8) Monocytes # (Auto) 1.2 TH/MM3 (0-0.9) Eosinophils # (Auto) 0.1 TH/MM3 (0-0.4) Basophils # (Auto) 0.1 TH/MM3 (0-0.2) CBC Comment DIFF FINAL Differential Comment Prothrombin Time 15.5 SEC (9.8-11.6) Prothromb Time International 1.4 RATIO Ratio Activated Partial 44.3 SEC Thromboplast Time (24.3-30.1) Urine Color YELLOW (YELLW/STRAW) Urine Turbidity CLEAR (CLEAR) Urine pH 5.0 (5.0-8.5) Urine Specific [place] 1.011 (1.002-1.035) Urine Protein NEG mg/dL (NEG-TRACE) Urine Glucose (UA) NEG mg/dL (NEG) Urine Ketones NEG mg/dL (NEG) Urine Occult Blood NEG (NEG) Urine Nitrite NEG (NEG) Urine Bilirubin NEG (NEG) Urine Urobilinogen LESS THAN 2.0 MG/DL (LESS THAN 2.0) Urine Leukocyte Esterase NEG (NEG) Urine RBC 0-3 /hpf (0-3) Urine WBC 0-2 /hpf (0-5) Urine Squamous Epithelial 0-5 /hpf (0-5) Cells Urine Bacteria NONE /hpf (NONE) Sodium Level 140 MEQ/L (136-145) Potassium Level 4.3 MEQ/L (3.5-5.1) Chloride Level 105 MEQ/L (98-107) Carbon Dioxide Level 26.9 MEQ/L (21.0-32.0) Anion Gap 8 MEQ/L (5-15) Blood Urea Nitrogen 53 MG/DL (7-18) Creatinine 1.82 MG/DL (0.60-1.30) Estimat Glomerular Filtration 35 ML/MIN (>89) Rate Random Glucose 199 MG/DL (74-106) Calcium Level 8.6 MG/DL (8.5-10.1) Total Bilirubin 0.5 MG/DL (0.2-1.0) Aspartate Amino Transf 34 U/L (15-37) (AST/SGOT) Alanine Aminotransferase 38 U/L (12-78) (ALT/SGPT) Alkaline Phosphatase 117 U/L (45-117) Total Protein 6.6 GM/DL (6.4-8.2) Albumin 3.1 GM/DL (3.4-5.0) cbc: WBC 9.1, hemoglobin 13.2, hematocrit 39.6, platelets 115 which is his baseline BMP: Sodium 140, chloride 105, BUN 53, creatinine 1.82 (which is elevated from baseline of 1.6) UA neg for infection patient most likely with dehydration, plan to hydrate patient and discharge him to home with follow up with pcp Diagnosis Primary Impression: Dehydration Patient Instructions: General Instructions Additional Instructions: Please follow-up with your primary care doctor in 2-3 days Drink plenty of fluids Return to the emergency symptoms worsen or progress return Return to the emergency room as needed Disposition: 01 DISCHARGE HOME Condition: Stable Lashaun Plunkett DO Dec 11, 2016 17:47 Lashaun Plunkett DO Dec 11, 2016 17:47
--- NOTE | 2016-12-11 18:06 | RADRPT ---
EXAM DATE/TIME: 12/11/2016 17:56 [facility] COMPARISON: CHEST SINGLE AP, August 30, 2016, 4:37. INDICATIONS : Short of breath. MEDICAL HISTORY : None. SURGICAL HISTORY : None. ENCOUNTER: Initial ACUITY: 1 day PAIN SCORE: 0/10 LOCATION: Bilateral chest FINDINGS: A single view of the chest demonstrates no evidence of mass, infiltrate or effusion. The cardiomedia stinal contours are unremarkable. Osseous structures are intact. CONCLUSION: Diminished lung volumes with clear lungs. Raheel Juares MD on December 11, 2016 at 18:04 Board Certified Radiologist. This report was verified electronically.
[2016-12-11 18:13] LABS: AUTOMATED NEUTROPHIL # 5.8 TH/MM3 (1.8-7.7); BASOPHIL # 0.1 TH/MM3 (0-0.2); EOSINOPHIL # 0.1 TH/MM3 (0-0.4); EOSINOPHIL % 0.8 % (0.0-4.0); HEMATOCRIT 39.6 % (39.0-51.0); HEMO FLAGS DIFF FINAL; LYMPH % 21.1 % (9.0-44.0); LYMPHOCYTE # 1.9 TH/MM3 (1.0-4.8); MEAN CELL VOLUME 99.5 FL (80.0-100.0); MEAN CORPUSCULAR HEMOGLOBIN 33.2 PG (27.0-34.0); MEAN CORPUSCULAR HGB CONC 33.4 % (32.0-36.0); MONO % 13.1 % (0.0-8.0); PLATELET COUNT 115 TH/MM3 (150-450); RED BLOOD COUNT 3.98 MIL/MM3 (4.50-5.90); WHITE BLOOD COUNT 9.1 TH/MM3 (4.0-11.0)
[2016-12-11 18:22] LABS: BLOOD, URINE NEG (NEG); GLUCOSE,URINE NEG (NEG); KETONE, URINE NEG (NEG); NITRITE,URINE NEG (NEG); URINE COLOR YELLOW (YELLW/STRAW)
[2016-12-11 18:24] LABS: APTT (PATIENT) 44.3 SEC (24.3-30.1); INTERNATIONAL NORMALIZED RATIO 1.4 RATIO; PROTHROMBIN TIME - PATIENT 15.5 SEC (9.8-11.6)
[2016-12-11 18:30] LABS: ALT (GPT) 38 U/L (12-78); ANION GAP 8 MEQ/L (5-15); AST (GOT) 34 U/L (15-37); BICARBONATE 26.9 MEQ/L (21.0-32.0); BLOOD UREA NITROGEN 53 MG/DL (7-18); CHLORIDE 105 MEQ/L (98-107); GLOMERULAR FILTRATION RATE 35 ML/MIN (>89); POTASSIUM 4.3 MEQ/L (3.5-5.1); SODIUM (NA) 140 MEQ/L (136-145)
--- NOTE | 2016-12-11 18:30 | RADRPT ---
EXAM DATE/TIME: 12/11/2016 17:59 [facility] COMPARISON: CT BRAIN W/O CONTRAST, August 30, 2016, 4:40. INDICATIONS : Lethargic and headache X one week. RADIATION DOSE: 52.23 CTDIvol (mGy) MEDICAL HISTORY : Cardiovascular disease. Hypertension. Diabetes mellitus type 1. SURGICAL HISTORY : None. ENCOUNTER: Initial ACUITY: 1 week PAIN SCALE: 5/10 LOCATION: cranial TECHNIQUE: Multiple contiguous axial images were obtained of the head. Using automated exposure control and adj ustment of the mA and/or kV according to patient size, radiation dose was kept as low as reasonably a chievable to obtain optimal diagnostic quality images. FINDINGS: CEREBRUM: Remote infarct right frontal lobe. The ventricles are normal for age. No evidence of midline shift, mass lesion, hemorrhage or acute infarction. No extra-axial fluid collections are seen. POSTERIOR FOSSA: The cerebellum and brainstem are intact. The 4th ventricle is midline. The cerebellopontine angle i s unremarkable. EXTRACRANIAL: The visualized portion of the orbits is intact. Scattered sinusitis. SKULL: The calvaria is intact. No evidence of skull fracture. CONCLUSION: 1. Old right frontal infarct. 2. Scattered sinusitis. Raheel Juares MD on December 11, 2016 at 18:25 Board Certified Radiologist. This report was verified electronically.
[2016-12-11 18:33] LABS: ALKALINE PHOSPHATASE 117 U/L (45-117); TOTAL BILIRUBIN ADULT 0.5 MG/DL (0.2-1.0)
[2016-12-11 18:37] VITALS: BP 96/59; PULSE 75; RESP 16; O2SAT 96
[2016-12-11 18:45] LABS: RBC, URINE 0-3 /hpf (0-3); WBC, URINE 0-2 /hpf (0-5)
[2016-12-11 18:46] LABS: CULTURE IF INDICATED CULT NOT INDICATED; SQUAMOUS EPITHELIAL CELL URINE 0-5 /hpf (0-5)
--- NOTE | 2016-12-12 14:38 | EKG ---
Date Performed: 12/11/2016 Time Performed: 17:43:37 PTAGE: 89 years EKG: ATRIAL FIBRILLATION MARKED LEFT AXIS DEVIATION LEFT BUNDLE BRANCH BLOCK LOW LIMB LEAD VOLTA GE COMPARED TO PRIOR TRACING THE ATRIAL FIBRILLATION HAS REPLACED A 2:1 ATRIAL TACHYCARDIA ABNORMAL E CG PREVIOUS TRACING : 08/31/2016 13.16 DOCTOR: Holland Collins Interpretating Date/Time 12/12/2016 14:36:45
== END 2016-12-11 19:40 | disposition home or self-care (01) ==
LOC: NEPC 15:38
DX: I48.91 Unspecified atrial fibrillation (principal); E86.0 Dehydration; E11.9 Type 2 diabetes mellitus without complications; N40.0 Benign prostatic hyperplasia without lower urinary tract symptoms; I10 Essential (primary) hypertension; G62.9 Polyneuropathy, unspecified; I44.7 Left bundle-branch block, unspecified; Z86.73 Personal history of transient ischemic attack (TIA), and cerebral infarction without residual deficits; Z87.442 Personal history of urinary calculi
CPT/HCPCS: 70450; 71010; 80053; 81001; 85025; 85610; 85730; 93005; 99285; J7040